=== PATIENT | female | born 1935 | race Caucasian/White ===

== ENCOUNTER 2019-01-17 10:28 | Observation (INO) | payer MEDICARE, OTHER ==
--- NOTE | 2019-01-17 10:38 | EDM.PDOC ---
ED HPI GENERAL MEDICAL PROBLEM - General Chief Complaint: Respiratory Problem Stated Complaint: TROUBLE BREATHING Time Seen by Provider: 01/17/19 10:38 Source of Information: Reports: Patient, Family (daughter), Old Records, RN, RN Notes Reviewed History Limitations: Reports: No Limitations - History of Present Illness INITIAL COMMENTS - FREE TEXT/NARRATIVE: Pt arrives to ER from home by POV with c/o shortness of breath. Pt states that she started feeling bad yesterday with shortness of breath, but no cough. She states that she was admitted to the hospital 10/26/18 in [place] for pneumonia, influenza A, acute respiratory failure, and sepsis. Today in addition to feeling SOB, she reports wheezing, and that it hurts her chest when her dogs sleep on her chest. Denies cough, sputum, chest pain, abdominal pain, N/V, fever , or chills. Admits to being swollen under the eyes, orthopnea, and lower extremity edema. Pt's daughter states the pt's toes were swollen and blue last night and this morning. Pt had an ECHO recently but doesn't know the results. She has Hx of CHF, and A-fib. Patient states is compliant with her water pill. Onset: Gradual Onset Date: 01/16/19 Duration: Constant Location: Reports: Chest, Generalized Quality: Reports: Other (Denies pain) Severity: Moderate Improves with: Reports: None Worsens with: Reports: Other (Activity/exertion) Associated Symptoms: Reports: No Other Symptoms - Related Data Allergies Allergy/AdvReac Type Severity Reaction Status Date / Time No Known Allergies Allergy Verified 01/17/19 10:49 Home Meds: Home Meds Bimatoprost [Lumigan 0.03% Ophth Soln] 1 drop EYEBOTH BEDTIME 02/26/15 [History] Flecainide [Tambocor] 100 mg PO BID 02/26/15 [History] Furosemide [Lasix] 40 mg PO DAILY 02/26/15 [History] Losartan [Cozaar] 25 mg PO DAILY 02/26/15 [History] Metoprolol Succinate [Toprol XL] 25 mg PO DAILY 02/26/15 [History] Omeprazole 20 mg PO DAILY 02/26/15 [History] Warfarin [Coumadin] 2.5 mg PO ASDIRECTED 02/26/15 [History] Warfarin [Coumadin] 5 mg PO ASDIRECTED 02/26/15 [History] atorvaSTATin [Lipitor] 10 mg PO DAILY 02/26/15 [History] Pramipexole [Mirapex] 0.125 mg PO BEDTIME 04/25/18 [History] Past Medical History HEENT History: Reports: Glaucoma, Impaired Vision, Other (See Below) Other HEENT History: WEARS CORRECTIVE LENS Cardiovascular History: Reports: Afib, High Cholesterol, Hypertension, PVD, Other (See Below) Other Cardiovascular History: CHRONIC LEG EDEMA Respiratory History: Reports: Sleep Apnea Gastrointestinal History: Reports: GERD, Hiatal Hernia Genitourinary History: Reports: Chronic Renal Insuffiency, 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: Musculoskeletal History: Reports: Osteoarthritis Neurological History: Reports: Other (See Below) Other Neuro History: RESTLESS LEG SYNDROME Psychiatric History: Reports: None Endocrine/Metabolic History: Reports: Obesity/BMI 30+, Osteoporosis Hematologic History: Reports: None Immunologic History: Reports: None Oncologic (Cancer) History: Reports: None Dermatologic History: Reports: None - Infectious Disease History Infectious Disease History: Reports: Chicken Pox, Measles - Past Surgical History Head Surgeries/Procedures: Reports: None HEENT Surgical History: Reports: Cataract Surgery, Oral Surgery, Other (See Below) Other HEENT Surgeries/Procedures: NASAL SURG (SEPTOPLASTY). CATARACT EXTRACTION WITH iSTENT PLACEMENT BILAT EYES Cardiovascular Surgical History: Reports: None Respiratory Surgical History: Reports: None GI Surgical History: Reports: Colonoscopy, EGD, Hernia, Abdominal Female Surgical History: Reports: Hysterectomy Endocrine Surgical History: Reports: None Musculoskeletal Surgical History: Reports: Hip Replacement, Knee Replacement, Other (See Below) Other Musculoskeletal Surgeries/Procedures:: FOOT SURGERY X4 HARDWARE Oncologic Surgical History: Reports: None Dermatological Surgical History: Reports: None Social & Family History - Family History Family Medical History: Noncontributory - Caffeine Use Caffeine Use: Reports: Coffee Other Caffeine Use: COFFEE IN THE AM - Living Situation & Occupation Living situation: Reports: , with Spouse Occupation: Retired ED ROS GENERAL - Review of Systems Review Of Systems: ROS reveals no pertinent complaints other than HPI. ED EXAM, GENERAL - Physical Exam Exam: See Below Exam Limited By: No Limitations General Appearance: Alert, No Apparent Distress, Obese Eye Exam: Bilateral Eye: Normal Inspection Nose: Normal Inspection Throat/Mouth: Normal Inspection, Normal Lips, Normal Voice, No Airway Compromise Head: Atraumatic, Normocephalic Neck: Normal Inspection, Supple, Full Range of Motion Respiratory/Chest: No Respiratory Distress, No Accessory Muscle Use, Decreased Breath Sounds, Rales. No: Rhonchi, Wheezing Cardiovascular: Regular Rate, Rhythm, Other (+2 edema to knees B/L) GI/Abdominal: Normal Bowel Sounds, Soft, Non-Tender, No Distention Back Exam: Normal Inspection Extremities: Normal Range of Motion, Pedal Edema, Other (Chronic appearing lower extremity venous stasis changes.). No: Leg Pain Neurological: Alert, Oriented, No Motor/Sensory Deficits Psychiatric: Normal Mood Skin Exam: Warm, Dry EKG INTERPRETATION EKG Date: 01/17/19 Time: 11:11 Rhythm: Other (SR) Rate (Beats/Min): 67 [place]: Normal P-Wave: Present (Left atrial abnormality, 1st degree AVB) QRS: Wide (borderline IVCD) ST-T: Normal QT: Normal Comparison: NA - No Prior EKG Course - Vital Signs Last Recorded V/S: Last Vital Signs Temp 37.6 C 01/17/19 10:36 Pulse 66 01/17/19 12:04 Resp 18 01/17/19 12:04 BP 135/62 01/17/19 12:04 Pulse Ox 92 L 01/17/19 12:04 - Orders/Labs/Meds Orders: Active Orders 24 hr Category Date Time Status EKG 12 Lead [EKG Documentation Completion] [RC] STAT Care 01/17/19 11:07 Active Peripheral IV Care [RC] . DIRECTED Care 01/17/19 11:08 Active UA RFX KASEY AND CULT IF INDIC [URIN] Stat Lab 01/17/19 11:08 Ordered Sodium Chloride 0.9% [Saline Flush] Med 01/17/19 11:06 Active 10 ml FLUSH ASDIRECTED PRN Peripheral IV Insertion Adult [OM.PC] Stat Oth 01/17/19 11:07 Ordered Medication Orders Sodium Chloride (Saline Flush) 10 ml FLUSH ASDIRECTED PRN PRN Reason: Keep Vein Open Last Admin: 01/17/19 12:03 Dose: 10 ml Labs: Laboratory Tests 01/17/19 01/17/19 01/17/19 Range/Units 11:20 11:20 11:20 WBC 10.4 H (5.0-10.0) 10^3/uL RBC 4.09 L (4.2-5.4) 10^6/uL Hgb 12.5 (12.0-16.0) g/dL Hct 39.3 (37.0-47.0) % MCV 96.1 (80-100) fL MCH 30.6 (27.0-34.0) pg MCHC 31.8 L (33.0-35.0) g/dL Plt Count 176 D (150-450) 10^3/uL Neut % (Auto) 75.1 (42.2-75.2) % Lymph % (Auto) 12.8 L (20.5-50.1) % [place] % (Auto) 11.7 H (2-8) % Eos % (Auto) 0.2 L (1.0-3.0) % Baso % (Auto) 0.2 (0.0-1.0) % PT 37.5 H (9.0-12.0) SEC INR 3.9 H (0.9-1.2) Sodium 137 (135-145) mmol/L Potassium 3.9 (3.6-5.0) mmol/L Chloride 105 (101-111) mmol/L Carbon Dioxide 23.0 (21.0-31.0) mmol/L Anion Gap 12.9 BUN 18 (7-18) mg/dL Creatinine 1.1 (0.6-1.3) mg/dL Est Cr Clr Drug Dosing 28.81 mL/min Estimated GFR (MDRD) 48 BUN/Creatinine Ratio 16.36 Glucose 111 H (74-105) mg/dL Calcium 8.6 (8.4-10.2) mg/dl Total Bilirubin 1.2 H (0.2-1.0) mg/dL AST 35 (10-42) IU/L ALT 27 (10-60) IU/L Alkaline Phosphatase 83 (42-121) IU/L Troponin I 0.04 H* (0.00-0.02) ng/ml B-Natriuretic Peptide 550 H (0-100) pg/ml Total Protein 7.0 (6.7-8.2) g/dl Albumin 3.6 (3.2-5.5) g/dl Globulin 3.4 Albumin/Globulin Ratio 1.06 Meds: Medications Generic Name Dose Route Start Last Admin Trade Name Richardq PRN Reason Stop Dose Admin Sodium Chloride 10 ml 01/17/19 11:06 01/17/19 12:03 Saline Flush FLUSH 10 ml ASDIRECTED PRN Administration Keep Vein Open Discontinued Medications Generic Name Dose Route Start Last Admin Trade Name Richardq PRN Reason Stop Dose Admin Aspirin 324 mg 01/17/19 12:08 Aspirin PO 01/17/19 12:09 ONETIME ONE Furosemide 80 mg 01/17/19 12:08 Lasix IVPUSH 01/17/19 12:09 NOW ONE - Radiology Interpretation Free Text/Narrative:: XR Chest: Cardiomegaly, generalized pulmonary venous, congestion and blunting of the costovertebral sulci with fluid in the fissures indicating cardiovascular decompensation (CHF) which is new since x-ray from 08/22/12 per Rad. report. Departure - Departure Time of Disposition: 12:34 (admit to Dr. Higuera) Disposition: Refer to Observation Condition: Undetermined Clinical Impression: Elevated troponin Acute CHF (congestive heart failure) Qualifiers: Heart failure type: unspecified Qualified Code(s): I50.9 - Heart failure, unspecified - Discharge Information *PRESCRIPTION DRUG MONITORING PROGRAM REVIEWED*: No *COPY OF PRESCRIPTION DRUG MONITORING REPORT IN PATIENT ELSA: No Forms: ED Department Discharge - My Orders Last 24 Hours: My Active Orders 01/17/19 11:06 Sodium Chloride 0.9% [Saline Flush] 10 ml FLUSH ASDIRECTED PRN 01/17/19 11:07 EKG 12 Lead [EKG Documentation Completion] [RC] STAT Peripheral IV Insertion Adult [OM.PC] Stat 01/17/19 11:08 Peripheral IV Care [RC] . DIRECTED UA RFX KASEY AND CULT IF INDIC [URIN] Stat - Assessment/Plan Last 24 Hours: My Active Orders 01/17/19 11:06 Sodium Chloride 0.9% [Saline Flush] 10 ml FLUSH ASDIRECTED PRN 01/17/19 11:07 EKG 12 Lead [EKG Documentation Completion] [RC] STAT Peripheral IV Insertion Adult [OM.PC] Stat 01/17/19 11:08 Peripheral IV Care [RC] . DIRECTED UA RFX KASEY AND CULT IF INDIC [URIN] Stat
[2019-01-17 11:46] LABS: ANION GAP 12.9
[2019-01-17] MEDS: Sodium Chloride 0.9% 10 ML Syringe FLUSH PRN ×3 (12:03→21:12)
--- NOTE | 2019-01-17 12:05 | CR ---
Clinical history: 83-year-old female with peripheral edema and shortness of breath. Interpretation: Abnormal. Cardiomegaly, generalized pulmonary venous congestion and blunting of the costophrenic sulci with fluid in the fissures indicating cardiovascular decompensation i.e. CHF. (New since comparison film 22 August 2012) No lung mass hilar lymphadenopathy or focal lobar pneumonia. Small hiatus hernia lower, middle mediastinum. No atelectasis/collapse. No pneumothorax.
[2019-01-17] MEDS ORDERED: Furosemide 40 MG/4 ML VIAL IVPUSH ONE (12:08)
[2019-01-17] MEDS ORDERED: Aspirin 81 MG Tab.Chew PO ONE (12:08)
--- NOTE | 2019-01-17 13:06 | PCM.HP ---
H&P History of Present Illness - General Date of Service: 01/17/19 Admit Problem/Dx: Admitted with: Increased shortness of breath and elevated Troponin Source of Information: Patient, EMS Notes Reviewed History Limitations: Reports: No Limitations - History of Present Illness Initial Comments - Free Text/Narative: Ms. Patel is a 83 Y/O F with past medical history which is significant for hypertension, dyslipidemia, gastroesophageal reflux disease, insomnia, history of Meniere's disease, CHF, Chronic A-fib on flecanide and anti-coagulation , she was seen by EP cardiology at [facility] and scheduled to have GEMA, Flutter ablation and possible cardioversion on 02/03/19, she also has CKD stage III . Today she presented to ED with Increased shortness of breath and CXR showed generalized pulmonary congestion likely CHF exacerbation. labs showed Mild elevation of Troponin ( 0.04), She was given lasix 80 mg IV X 1 dose in ER but will be admitted for observation for monitoring Troponin and more diuresis. Onset of Symptoms: Reports: Gradual Duration of Symptoms: Reports: Day(s): Location: Reports: Chest (congestion) Severity: Moderate Context: Reports: Exertion Associated Symptoms: Reports: Shortness of Breath - Related Data Allergies/Adverse Reactions: Allergies Allergy/AdvReac Type Severity Reaction Status Date / Time No Known Allergies Allergy Verified 01/17/19 13:20 Home Medications: Home Meds Bimatoprost [Lumigan 0.03% Ophth Soln] 1 drop EYEBOTH BEDTIME 02/26/15 [History] Flecainide [Tambocor] 100 mg PO BID 02/26/15 [History] Furosemide [Lasix] 40 mg PO DAILY 02/26/15 [History] Losartan [Cozaar] 25 mg PO DAILY 02/26/15 [History] Metoprolol Succinate [Toprol XL] 25 mg PO DAILY 02/26/15 [History] Omeprazole 20 mg PO DAILY 02/26/15 [History] Warfarin [Coumadin] 2.5 mg PO ASDIRECTED 02/26/15 [History] Warfarin [Coumadin] 5 mg PO ASDIRECTED 02/26/15 [History] atorvaSTATin [Lipitor] 10 mg PO DAILY 02/26/15 [History] Pramipexole [Mirapex] 0.125 mg PO BEDTIME 09/07/18 [History] Past Medical History HEENT History: Reports: Glaucoma, Impaired Vision, Other (See Below) Other HEENT History: WEARS CORRECTIVE LENS Cardiovascular History: Reports: Afib, High Cholesterol, Hypertension, PVD, Other (See Below) Other Cardiovascular History: CHRONIC LEG EDEMA Respiratory History: Reports: Sleep Apnea Other Respiratory History: was just in hospital in [place] for bacterial pneumonia in October 2018 Gastrointestinal History: Reports: GERD, Hiatal Hernia Genitourinary History: Reports: Chronic Renal Insuffiency, 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: Musculoskeletal History: Reports: Osteoarthritis Neurological History: Reports: Other (See Below) Other Neuro History: RESTLESS LEG SYNDROME Psychiatric History: Reports: None Endocrine/Metabolic History: Reports: Obesity/BMI 30+, Osteoporosis Hematologic History: Reports: None Immunologic History: Reports: None Oncologic (Cancer) History: Reports: None Dermatologic History: Reports: None - Infectious Disease History Infectious Disease History: Reports: Chicken Pox, Measles - Past Surgical History Head Surgeries/Procedures: Reports: None HEENT Surgical History: Reports: Cataract Surgery, Oral Surgery, Other (See Below) Other HEENT Surgeries/Procedures: NASAL SURG (SEPTOPLASTY). CATARACT EXTRACTION WITH iSTENT PLACEMENT BILAT EYES Cardiovascular Surgical History: Reports: None Respiratory Surgical History: Reports: None GI Surgical History: Reports: Colonoscopy, EGD, Hernia, Abdominal Female Surgical History: Reports: Hysterectomy Endocrine Surgical History: Reports: None Musculoskeletal Surgical History: Reports: Hip Replacement, Knee Replacement, Other (See Below) Other Musculoskeletal Surgeries/Procedures:: FOOT SURGERY X4 HARDWARE Oncologic Surgical History: Reports: None Dermatological Surgical History: Reports: None Social & Family History - Family History Family Medical History: Noncontributory - Tobacco Use Smoking Status *Q: Never Smoker Second Hand Smoke Exposure: No - Caffeine Use Caffeine Use: Reports: Coffee Other Caffeine Use: COFFEE IN THE AM - Recreational Drug Use Recreational Drug Use: No - Living Situation & Occupation Living situation: Reports: , with Spouse Occupation: Retired H&P Review of Systems - Review of Systems: Review Of Systems: See Below General: Reports: Weakness. Denies: Fever, Chills, Fatigue, Weight Loss HEENT: Denies: Dysphasia, Headaches, Sinus Congestion, Sore Throat, Visual Changes Pulmonary: Reports: Shortness of Breath, Wheezing. Denies: Cough, Sputum Cardiovascular: Reports: Dyspnea on Exertion, Orthopnea. Denies: Chest Pain, Lightheadedness Gastrointestinal: Denies: Abdominal Pain, Constipation, Nausea, Vomiting Genitourinary: Denies: Dysuria, Burning, Urgency, Flank Pain Musculoskeletal: Reports: Shoulder Pain, Joint Swelling. Denies: Hand Pain, Leg Pain Skin: Denies: Cyanosis, Jaundice, Bruising, Pruritis, Rash Psychiatric: Denies: Confusion, Anxiety, Agitation Neurological: Denies: Numbness, Tingling, Tremors Hematologic/Lymphatic: Denies: Easy Bleeding, Easy Bruising Immunologic: Reports: No Symptoms Exam - Exam Exam: See Below - Vital Signs Vital Signs: Last Vital Signs Temp 37.6 C 01/17/19 10:36 Pulse 66 01/17/19 12:04 Resp 18 01/17/19 12:04 BP 135/62 01/17/19 12:04 Pulse Ox 92 L 01/17/19 12:04 Weight: 87.634 kg - Exam Quality Assessment: DVT Prophylaxis. No: Urinary Catheter General: Alert, Oriented, Cooperative HEENT: Conjunctiva Clear, Mucosa Moist & Aten, Pupils Equal, Pupils Reactive Neck: Supple, Trachea Midline Lungs: Clear to Auscultation, Normal Respiratory Effort, Crackles, Wheezing Cardiovascular: Irregular Rhythm, Systolic Murmur GI/Abdominal Exam: Normal Bowel Sounds, Soft, Non-Tender, No Distention. No: Rigid, Rebound, Tender (Female) Exam: Deferred Rectal (Female) Exam: Deferred Back Exam: Normal Inspection Extremities: Normal Inspection, Pedal Edema Skin: Warm, Dry, Intact Neurological: Cranial Nerves Intact, Reflexes Equal Bilateral Neuro Extensive - Mental Status: Alert, Oriented x3, Normal Mood/Affect, Normal Cognition, Memory Intact Neuro Extensive - Motor, Sensory, Reflexes: CN II-XII Intact, Normal Gait, Normal Reflexes Psychiatric: Alert, Normal Affect, Normal Mood - Patient Data Lab Results Last 24 hrs: Laboratory Results - last 24 hr 01/17/19 01/17/19 01/17/19 Range/Units 11:20 11:20 11:20 WBC 10.4 H (5.0-10.0) 10^3/uL RBC 4.09 L (4.2-5.4) 10^6/uL Hgb 12.5 (12.0-16.0) g/dL Hct 39.3 (37.0-47.0) % MCV 96.1 (80-100) fL MCH 30.6 (27.0-34.0) pg MCHC 31.8 L (33.0-35.0) g/dL Plt Count 176 D (150-450) 10^3/uL Neut % (Auto) 75.1 (42.2-75.2) % Lymph % (Auto) 12.8 L (20.5-50.1) % [place] % (Auto) 11.7 H (2-8) % Eos % (Auto) 0.2 L (1.0-3.0) % Baso % (Auto) 0.2 (0.0-1.0) % PT 37.5 H (9.0-12.0) SEC INR 3.9 H (0.9-1.2) Sodium 137 (135-145) mmol/L Potassium 3.9 (3.6-5.0) mmol/L Chloride 105 (101-111) mmol/L Carbon Dioxide 23.0 (21.0-31.0) mmol/L Anion Gap 12.9 BUN 18 (7-18) mg/dL Creatinine 1.1 (0.6-1.3) mg/dL Est Cr Clr Drug Dosing 28.81 mL/min Estimated GFR (MDRD) 48 BUN/Creatinine Ratio 16.36 Glucose 111 H (74-105) mg/dL Calcium 8.6 (8.4-10.2) mg/dl Total Bilirubin 1.2 H (0.2-1.0) mg/dL AST 35 (10-42) IU/L ALT 27 (10-60) IU/L Alkaline Phosphatase 83 (42-121) IU/L Troponin I 0.04 H* (0.00-0.02) ng/ml B-Natriuretic Peptide 550 H (0-100) pg/ml Total Protein 7.0 (6.7-8.2) g/dl Albumin 3.6 (3.2-5.5) g/dl Globulin 3.4 Albumin/Globulin Ratio 1.06 Result Diagrams: 01/17/19 11:20 01/17/19 11:20 - Problem List (1) Acute CHF (congestive heart failure) SNOMED Code(s): 24900997 ICD Code: I50.9 - HEART FAILURE, UNSPECIFIED Status: Acute Current Visit : No Qualifiers: Heart failure type: unspecified Qualified Code(s): I50.9 - Heart failure, unspecified (2) Elevated troponin SNOMED Code(s): 117031180, 075945913, 729948948 ICD Code: R74.8 - ABNORMAL LEVELS OF OTHER SERUM ENZYMES Status: Acute Current Visit: No Problem List Initiated/Reviewed/Updated: Yes Orders Last 24hrs: Active Orders 24 hr Category Date Time Status EKG 12 Lead [EKG Documentation Completion] [RC] STAT Care 01/17/19 11:07 Active Peripheral IV Care [RC] . DIRECTED Care 01/17/19 11:08 Active UA RFX KASEY AND CULT IF INDIC [URIN] Stat Lab 01/17/19 11:08 Ordered Sodium Chloride 0.9% [Saline Flush] Med 01/17/19 11:06 Active 10 ml FLUSH ASDIRECTED PRN Peripheral IV Insertion Adult [OM.PC] Stat Oth 01/17/19 11:07 Ordered Medication Orders Sodium Chloride (Saline Flush) 10 ml FLUSH ASDIRECTED PRN PRN Reason: Keep Vein Open Last Admin: 01/17/19 12:39 Dose: 10 ml Admin: 01/17/19 12:03 Dose: 10 ml Assessment/Plan Comment:: This is a 83 y/o F with past history of Chronic a-fib/Flutter on flecanide and anti-coagulation , hypertension, Dyslipidemia , who presented to ED with complain of Increased shortness of breath, Dyspnea on Exertion. CXR showed significant congestion and also her tropinin was slightly elevated ( 0.04), was admitted for observation and monitoring cardiac markers Impression and Plan: Increased shortness of Breath: This is likely from CHF exacerbation with pulmonary congestion -She has received lasix 80 mg IV X 1 dose in ED and will give a second dose of IV lasix at 4:30 PM -Continue I/O recording -Will resume home diuretics from Tomorrow AM ( lasix 40 mg BID and Metolazone at 2.5 mg QOD] -Will keep 02 sat at >90 2. Hypertension: BP is acceptable and will continue Metoprolol at 25 mg daily and Losartan at 25 mg daily 3. Chronic A-Fib: will continue Flecanide at 100 mg BID and continue coumadin ( pharmacy to dose and Monitor INR) 4. Dyslipidemia:Will continue Lipitor at 10 mg daily 5. GI prophylaxis: will continue Omeprazole at 20 mg daily 6. DVT prophylaxis: She is on Coumadin 7. Code Status: discussed with pt and she is DNR/DNI
[2019-01-17] MEDS ORDERED: Docusate Sodium 100 MG Cap PO PRN (13:46)
[2019-01-17] MEDS ORDERED: Acetaminophen 325 MG Tab PO PRN (13:46)
[2019-01-17] MEDS ORDERED: Heparin Sodium 5,000 Units/ML Vial SUBCUT SCH (14:00)
[2019-01-17] MEDS ORDERED: Furosemide 100 MG/10 ML SDV IVPUSH ONE (16:30)
[2019-01-17] MEDS: FLECAINIDE 100 MG PO SCH (20:32)
[2019-01-17] MEDS ORDERED: BIMATOPROST EYEBOTH SCH (21:00)
[2019-01-17] MEDS ORDERED: MIRAPEX 0.25 MG PO SCH (21:00)
[2019-01-17] MEDS ORDERED: LUMIGAN 0.01% EYEBOTH SCH (21:00)
[2019-01-18] MEDS ORDERED: Omeprazole 20 MG Cap.CR **OWN MED PO SCH (06:00)
[2019-01-18 06:48] LABS: ANION GAP 15.8; CHLORIDE,CL 97 mmol/L (101-111); SODIUM,NA 138 mmol/L (135-145)
[2019-01-18] MEDS ORDERED: Metolazone 2.5 MG Tab PO SCH (07:20)
[2019-01-18] MEDS ORDERED: Potassium Chloride 10 MEQ in Premix Bag 4 BAG IV ONE (07:41)
[2019-01-18] MEDS ORDERED: Potassium Chloride 10 MEQ Tab.ER PO ONE ×2 (08:00→11:04)
[2019-01-18] MEDS: Potassium Chloride 100 ML IV SCH ×3 (08:13→11:27)
[2019-01-18] MEDS: Sodium Chloride 0.9% 10 ML Syringe FLUSH PRN (08:14)
[2019-01-18] MEDS: Furosemide 40 MG Tab **OWN MED PO SCH ×2 (08:21→14:30)
[2019-01-18] MEDS: FLECAINIDE 100 MG PO SCH (08:23)
[2019-01-18] MEDS ORDERED: Losartan 25 MG Tab PO SCH (09:00)
[2019-01-18] MEDS ORDERED: atorvaSTATin 10 MG Tab **OWN MED PO SCH (09:00)
[2019-01-18] MEDS ORDERED: Metoprolol Succinate 25 MG Tab.ER **OWN MED PO SCH (09:00)
[2019-01-18 12:11] VITALS: BP 128/62
--- NOTE | 2019-01-18 14:07 | PCM.DCSUM1 ---
Discharge Summary - Hospital Course Free Text/Narrative:: Ms. Patel is a 83 Y/O F with past medical history which is significant for hypertension, dyslipidemia, gastroesophageal reflux disease, insomnia, history of Meniere's disease, CHF, Chronic A-fib on flecanide and anti-coagulation , she was seen by EP cardiology at [facility] and scheduled to have GEMA, Flutter ablation and possible cardioversion on 02/03/19, she also has CKD stage III . She presented to ED on 01/17/19 with Increased shortness of breath and CXR showed generalized pulmonary congestion likely CHF exacerbation. labs showed Mild elevation of Troponin ( 0.04), She was given lasix 80 mg IV X 1 dose in ER and admitted for observation for monitoring Troponin and more diuresis. After admission troponin were followed q6 hrs X 4 times a last Troponin was 0.03 admitted with 0.04. she has receive lasix 80 mg IV X 2 dose and she responded well and will going home today. She will follow with PMD and also be seen in renal clinic on 01/22/19 at Noon. Diagnosis: Stroke: No - Discharge Data Discharge Date: 01/18/19 Discharge Disposition: Home, Self-Care 01 Condition: Good - Discharge Diagnosis/Problem(s) (1) Acute CHF (congestive heart failure) SNOMED Code(s): 32603476 ICD Code: I50.9 - HEART FAILURE, UNSPECIFIED Status: Acute Current Visit : No Qualifiers: Heart failure type: unspecified Qualified Code(s): I50.9 - Heart failure, unspecified (2) Elevated troponin SNOMED Code(s): 193407700, 507356466, 416335667 ICD Code: R74.8 - ABNORMAL LEVELS OF OTHER SERUM ENZYMES Status: Acute Current Visit: No - Patient Instructions Diet: Heart Healthy Diet Activity: As Tolerated Showering/Bathing: May Shower Notify Provider of: Fever, Nausea and/or Vomiting Other/Special Instructions: Ms. Patel is a 83 Y/O F with past medical history which is significant for hypertension, dyslipidemia, gastroesophageal reflux disease, insomnia, history of Meniere's disease, CHF, Chronic A-fib on flecanide and chronic anti-coagulation , she was seen by EP cardiology at [facility] and scheduled to have GEMA, Flutter ablation and possible cardioversion on 02/03/19, she also has CKD stage III . she presented to ED on 01/17/19 with Increased shortness of breath and CXR showed generalized pulmonary congestion likely CHF exacerbation. labs showed Mild elevation of Troponin ( 0.04), She was given lasix 80 mg IV X 1 dose in ER and admitted for observation for monitoring Troponin and more diuresis. she is doing well and will go home today , advise to follow with PMD in this week and also follow in renal clinic with labs on 01/22/19 at 12:00 ( noon) - Discharge Plan *PRESCRIPTION DRUG MONITORING PROGRAM REVIEWED*: No *COPY OF PRESCRIPTION DRUG MONITORING REPORT IN PATIENT ELSA: No Home Medications: Home Meds Bimatoprost [Lumigan 0.03% Ophth Soln] 1 drop EYEBOTH BEDTIME 02/26/15 [History] Flecainide [Tambocor] 100 mg PO BID 02/26/15 [History] Losartan [Cozaar] 25 mg PO DAILY 02/26/15 [History] Metoprolol Succinate [Toprol XL] 25 mg PO DAILY 02/26/15 [History] Omeprazole 20 mg PO DAILY 02/26/15 [History] Warfarin [Coumadin] 2.5 mg PO .MOWEDFRSASU 02/26/15 [History] Warfarin [Coumadin] 5 mg PO .TUTH 02/26/15 [History] atorvaSTATin [Lipitor] 10 mg PO DAILY 02/26/15 [History] Calcitriol 0.5 mcg PO .MOTUWEDTHFR 01/17/19 [History] Pramipexole [Mirapex] 0.25 mg PO BEDTIME 01/17/19 [History] metOLazone [Metolazone] 2.5 mg PO Q48H 01/17/19 [History] Furosemide [Lasix] 40 mg PO BIDDIURETIC tablet 01/18/19 [Rx] Patient's Own Medication [Ptom] 0 each EYEBOTH BEDTIME each 01/18/19 [Rx] Forms: ED Department Discharge Referrals: PCP,None [Primary Care Provider] - - Discharge Summary/Plan Comment DC Time >30 min.: Yes Discharge Summary/Plan Comment: This is a 83 y/o F with past history of Chronic a-fib/Flutter on flecanide and anti-coagulation , hypertension, Dyslipidemia , who presented to ED with complain of Increased shortness of breath, Dyspnea on Exertion. CXR showed significant congestion and also her tropinin was slightly elevated ( 0.04), was admitted for observation and monitoring cardiac markers Impression and Plan: Increased shortness of Breath: This is likely from CHF exacerbation with pulmonary congestion -She has received lasix 80 mg IV X 1 dose in ED and a second dose of IV lasix of 80 mg at 4:30 PM -responded very well to diuretics -Will continue diuretics lasix at 40 mg BID and Metolazone at 2.5 mg QOD] -check weight daily 2. Hypertension: BP is acceptable and will continue Metoprolol at 25 mg daily and Losartan at 25 mg daily 3. Chronic A-Fib: will continue Flecanide at 100 mg BID and continue coumadin ( pharmacy to dose and Monitor INR) 4. Dyslipidemia:Will continue Lipitor at 10 mg daily 5. Disposition: She will be going home today and follow with PMD and renal clinic in a week with labs - General Info Date of Service: 01/18/19 Admission Dx/Problem (Free Text: Admitted with: Increased shortness of breath and elevated Troponin Subjective Update: she was seen in room feeling good, no more shortness of breath, appetite is good , No nausea or vomiting,fever or chill. Functional Status: Reports: Pain Controlled, Tolerating Diet, Ambulating, Urinating - Review of Systems General: Reports: Appetite (good). Denies: Fever, Chills HEENT: Denies: Sinus Congestion, Visual Changes Pulmonary: Denies: Shortness of Breath, Cough, Wheezing Cardiovascular: Denies: Chest Pain, Edema, Lightheadedness Gastrointestinal: Denies: Abdominal Pain, Diarrhea, Nausea, Vomiting Genitourinary: Denies: Dysuria, Burning, Urgency, Flank Pain Musculoskeletal: Denies: Neck Pain, Hand Pain, Leg Pain Skin: Denies: Cyanosis, Bruising, Pruritis, Rash Neurological: Denies: Confusion, Numbness, Tingling Psychiatric: Denies: Confusion, Anxiety - Patient Data Vitals - Most Recent: Last Vital Signs Temp 36.5 C 01/18/19 12:00 Pulse 62 01/18/19 12:00 Resp 18 01/18/19 12:00 BP 128/62 01/18/19 12:00 Pulse Ox 99 01/18/19 12:00 Weight - Most Recent: 87.634 kg I&O - Last 24 hours: Intake & Output 01/17/19 01/18/19 01/18/19 22:59 06:59 14:59 Intake Total 550 300 520 Output Total 2600 1950 1100 Balance -2049 -1649 -580 Lab Results - Last 24 hrs: Laboratory Results - last 24 hr 01/17/19 01/17/19 01/18/19 Range/Units 17:00 23:10 06:05 PT (9.0-12.0) SEC INR (0.9-1.2) Sodium 138 (135-145) mmol/L Potassium 2.8 L (3.6-5.0) mmol/L Chloride 97 L (101-111) mmol/L Carbon Dioxide 28.0 (21.0-31.0) mmol/L Anion Gap 15.8 BUN 16 (7-18) mg/dL Creatinine 0.9 (0.6-1.3) mg/dL Est Cr Clr Drug Dosing 35.21 mL/min Estimated GFR (MDRD) > 60 Glucose 86 (74-105) mg/dL Calcium 8.5 (8.4-10.2) mg/dl Troponin I 0.05 H* 0.04 H* 0.03 H* (0.00-0.02) ng/ml 01/18/19 01/18/19 Range/Units 06:05 13:15 PT 30.8 H (9.0-12.0) SEC INR 3.2 H (0.9-1.2) Sodium (135-145) mmol/L Potassium 4.2 (3.6-5.0) mmol/L Chloride (101-111) mmol/L Carbon Dioxide (21.0-31.0) mmol/L Anion Gap BUN (7-18) mg/dL Creatinine (0.6-1.3) mg/dL Est Cr Clr Drug Dosing mL/min Estimated GFR (MDRD) Glucose (74-105) mg/dL Calcium (8.4-10.2) mg/dl Troponin I (0.00-0.02) ng/ml Med Orders - Current: Current Medications Acetaminophen (Tylenol) 650 mg PO Q4H PRN PRN Reason: Pain (mild 1-3 )/fever Atorvastatin Calcium (Lipitor) 10 mg PO DAILY LITZY Last Admin: 01/18/19 08:21 Dose: 10 mg Calcitriol (Rocaltrol) 0.5 mcg PO [id number] [facility] Docusate Sodium (Colace) 100 mg PO DAILY PRN PRN Reason: Constipation Furosemide (Lasix) 40 mg PO BIDDIURETIC [facility] Last Admin: 01/18/19 08:21 Dose: 40 mg Losartan Potassium (Cozaar) 25 mg PO DAILY [facility] Last Admin: 01/18/19 08:24 Dose: 25 mg Metolazone (Zaroxolyn) 2.5 mg PO Q48H [facility] Last Admin: 01/18/19 07:28 Dose: 2.5 mg Metoprolol Succinate (Toprol Xl) 25 mg PO DAILY [facility] Last Admin: 01/18/19 08:22 Dose: 25 mg Flecainide [Tambocor ] 100 Mg Tabs Own Med 0 mg PO BID [facility] Last Admin: 01/18/19 08:23 Dose: 100 mg Omeprazole (Omeprazole) 20 mg PO ACBREAKFAST [facility] Last Admin: 01/18/19 05:59 Dose: 20 mg Mirapex 0.25 Mg Tabs (Own Med) 0 each PO BEDTIME [facility] Last Admin: 01/17/19 20:33 Dose: 1 each Lumigan Ophthalmic Solution 0.01% Own Med 0 each EYEBOTH BEDTIME [facility] Last Admin: 01/17/19 20:36 Dose: 1 each Sodium Chloride (Saline Flush) 10 ml FLUSH ASDIRECTED PRN PRN Reason: Keep Vein Open Last Admin: 01/18/19 08:14 Dose: 10 ml Warfarin Sodium (Pharmacy To Dose - Warfarin) 1 dose .XX ASDIRECTED [facility] Discontinued Medications Aspirin (Aspirin) 324 mg PO ONETIME ONE Stop: 01/17/19 12:09 Last Admin: 01/17/19 12:38 Dose: 324 mg Furosemide (Lasix) 80 mg IVPUSH NOW ONE Stop: 01/17/19 12:09 Last Admin: 01/17/19 12:39 Dose: 80 mg Furosemide (Lasix) 80 mg IVPUSH NOW ONE Stop: 01/17/19 16:31 Last Admin: 01/17/19 16:36 Dose: 80 mg Heparin Sodium (Porcine) (Heparin Sodium) 5,000 units SUBCUT Q8H [facility] Potassium Chloride (Kcl 10 Meq In Water 100 Ml) 100 mls @ 100 mls/hr IV Q1H [facility] Stop: 01/18/19 11:59 Last Infusion: 01/18/19 12:14 Dose: Infused Lidocaine HCl (Xylocaine-Mpf 1%) 1 ml INJECT Q1H [facility] Stop: 01/18/19 12:31 Last Admin: 01/18/19 11:27 Dose: Not Given Potassium Chloride (Klor-Con 10) 40 meq PO ONETIME ONE Stop: 01/18/19 08:01 Last Admin: 01/18/19 08:24 Dose: 40 meq Potassium Chloride (Klor-Con 10) 40 meq PO ONETIME ONE Stop: 01/18/19 11:05 Last Admin: 01/18/19 11:21 Dose: 40 meq - Exam Quality Assessment: Reports: DVT Prophylaxis. Denies: Supplemental Oxygen, Urine Catheter General: Reports: Alert, Oriented, Cooperative, No Acute Distress HEENT: Reports: Pupils Equal, EOMI, Mucous Membr. Moist/[place] Lungs: Reports: Clear to Auscultation, Normal Respiratory Effort Cardiovascular: Reports: Regular Rate, Regular Rhythm, Murmurs GI/Abdominal Exam: Normal Bowel Sounds, Soft, Non-Tender, No Organomegaly, No Distention (Female) Exam: Deferred Rectal (Female) Exam: Deferred Extremities: Normal Inspection Skin: Reports: Warm, Dry, Intact Neurological: Reports: No New Focal Deficit Psy/Mental Status: Reports: Alert, Normal Affect, Normal Mood
[2019-01-19] MEDS ORDERED: CALCITRIOL 0.25 MCG PO SCH (08:00)
== END 2019-01-18 15:15 | disposition home or self-care (01) ==
LOC: DL.ED 10:28 → UNDOADMOB 12:53 → DL.MS 12:53
PROVIDERS: ADMIT Internal Medicine Nephrology; ATTEND Internal Medicine Nephrology
DX: I13.0 Hypertensive heart and chronic kidney disease with heart failure and stage 1 through stage 4 chronic kidney disease, or unspecified chronic kidney disease (principal); I50.9 Heart failure, unspecified; N18.3 Chronic kidney disease, stage 3 (moderate); R74.8 Abnormal levels of other serum enzymes; I48.2 Chronic atrial fibrillation; E78.00 Pure hypercholesterolemia, unspecified; K21.9 Gastro-esophageal reflux disease without esophagitis; G47.00 Insomnia, unspecified; G25.81 Restless legs syndrome; M19.90 Unspecified osteoarthritis, unspecified site; Z79.01 Long term (current) use of anticoagulants; Z79.899 Other long term (current) drug therapy
CPT/HCPCS: 36415; 71046; 80048; 80053; 81003; 83880; 84132; 84484; 85025; 85610; 93005; 99284; A9270; J1940; J3480

== ENCOUNTER 2019-09-04 11:47 | Emergency (ER) | payer MEDICARE, OTHER ==
[2019-09-04 12:03] VITALS: PULSE 113
[2019-09-04] MEDS ORDERED: Sodium Chloride 0.9% 10 ML Syringe FLUSH PRN (12:26)
[2019-09-04 12:48] LABS: ANION GAP 17.3; CHLORIDE,CL 93 mmol/L (101-111); SODIUM,NA 135 mmol/L (135-145)
--- NOTE | 2019-09-04 13:17 | CR ---
EXAMINATION: Chest 1V Frontal SEX: Female AGE: 83 years CLINICAL HISTORY: 83-year-old female recently diagnosed with mild CHF". Now CHEST PAIN. INTERPRETATION: 1. Chronic cardiomegaly and mild cephalization of flow but decreased interstitial lines/dependent pleural effusions i.e. radiographic improvement since previous exam 03 September 2019. 2. Small hiatus hernia lower middle mediastinum. 3. No new lung mass, hilar lymphadenopathy or focal lobar pneumonia. 4. No pneumothorax or pneumomediastinum. CONCLUSION: Slight radiographic improvement.
--- NOTE | 2019-09-04 13:28 | EDM.PDOC ---
ED HPI GENERAL MEDICAL PROBLEM - General Chief Complaint: Cardiovascular Problem Stated Complaint: SOB Time Seen by Provider: 09/04/19 12:15 Source of Information: Reports: Patient, Family, RN, RN Notes Reviewed History Limitations: Reports: No Limitations - History of Present Illness INITIAL COMMENTS - FREE TEXT/NARRATIVE: patient presents to ER from [facility] with complaint of increased shortness of breath and feeling very tired which has worsened over the past 10 days. Patient denies fever, chills, chest pains, nausea, vomiting, diarrhea. Patient states she has had cardioversion twice for atrial fibrillation for which she was feeling symptomatic. Report from PCP is ejection fraction of 50-55 %. Patient has history of CHF, and is up 6 pounds today. Patient did have a chest x-ray done yesterday that showed some mild CHF. Patient is currently maxed out on oral Lasix, 40 mg twice a day. BNP yesterday was 575. No troponin or EKG has been done today. INR 2.0 on September 01. Onset: Gradual Onset Date: 08/25/19 Duration: Constant, Getting Worse - Related Data Allergies Allergy/AdvReac Type Severity Reaction Status Date / Time No Known Allergies Allergy Verified 01/17/19 13:20 Home Meds: Home Meds Bimatoprost [Lumigan 0.03% Ophth Soln] 1 drop EYEBOTH BEDTIME 02/26/15 [History] Flecainide [Tambocor] 100 mg PO BID 02/26/15 [History] Losartan [Cozaar] 25 mg PO DAILY 02/26/15 [History] Metoprolol Succinate [Toprol XL] 25 mg PO DAILY 02/26/15 [History] Omeprazole 20 mg PO DAILY 02/26/15 [History] Warfarin [Coumadin] 2.5 mg PO .MOWEDFRSASU 02/26/15 [History] Warfarin [Coumadin] 5 mg PO .TUTH 02/26/15 [History] atorvaSTATin [Lipitor] 10 mg PO DAILY 02/26/15 [History] Pramipexole [Mirapex] 0.25 mg PO BEDTIME 01/17/19 [History] calcitrioL [Calcitriol] 0.5 mcg PO .MOTUWEDTHFR 01/17/19 [History] metOLazone [Metolazone] 2.5 mg PO Q48H 01/17/19 [History] Furosemide [Lasix] 40 mg PO BIDDIURETIC tablet 01/18/19 [Rx] Patient's Own Medication [Ptom] 0 each EYEBOTH BEDTIME each 01/18/19 [Rx] Past Medical History HEENT History: Reports: Glaucoma, Impaired Vision, Other (See Below) Other HEENT History: WEARS CORRECTIVE LENS Cardiovascular History: Reports: Afib, High Cholesterol, Hypertension, PVD, Other (See Below) Other Cardiovascular History: CHRONIC LEG EDEMA Respiratory History: Reports: Sleep Apnea Other Respiratory History: was just in hospital in [place] for bacterial pneumonia in October 2018 Gastrointestinal History: Reports: GERD, Hiatal Hernia Genitourinary History: Reports: Chronic Renal Insuffiency, 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 TANKAGE GRINDER History: Reports: Musculoskeletal History: Reports: Osteoarthritis Neurological History: Reports: Other (See Below) Other Neuro History: RESTLESS LEG SYNDROME Psychiatric History: Reports: None Endocrine/Metabolic History: Reports: Obesity/BMI 30+, Osteoporosis Hematologic History: Reports: None Immunologic History: Reports: None Oncologic (Cancer) History: Reports: None Dermatologic History: Reports: None Other Dermatologic History: lower leg discoloration - Infectious Disease History Infectious Disease History: Reports: Chicken Pox, Measles - Past Surgical History Head Surgeries/Procedures: Reports: None HEENT Surgical History: Reports: Cataract Surgery, Oral Surgery, Other (See Below) Other HEENT Surgeries/Procedures: NASAL SURG (SEPTOPLASTY). CATARACT EXTRACTION WITH iSTENT PLACEMENT BILAT EYES Cardiovascular Surgical History: Reports: None Respiratory Surgical History: Reports: None GI Surgical History: Reports: Colonoscopy, EGD, Hernia, Abdominal Female Surgical History: Reports: Hysterectomy Endocrine Surgical History: Reports: None Musculoskeletal Surgical History: Reports: Hip Replacement, Knee Replacement, Other (See Below) Other Musculoskeletal Surgeries/Procedures:: FOOT SURGERY X4 HARDWARE Oncologic Surgical History: Reports: None Dermatological Surgical History: Reports: None Social & Family History - Family History Family Medical History: Noncontributory - Tobacco Use Smoking Status *Q: Never Smoker - Caffeine Use Caffeine Use: Reports: Coffee Other Caffeine Use: COFFEE IN THE AM - Alcohol Use Days Per Week of Alcohol Use: 1 Number of Drinks Per Day: 1 Total Drinks Per Week: 1 - Recreational Drug Use Recreational Drug Use: No - Living Situation & Occupation Living situation: Reports: , with Spouse Occupation: Retired ED ROS GENERAL - Review of Systems Review Of Systems: Comprehensive ROS is negative, except as noted in HPI. ED EXAM, GENERAL - Physical Exam Exam: See Below Exam Limited By: No Limitations General Appearance: Alert, WD/WN, Mild Distress Eye Exam: Bilateral Eye: EOMI, Normal Inspection Ears: Normal External Exam, Hearing Grossly Normal Nose: Normal Inspection Throat/Mouth: Normal Inspection, Normal Voice, No Airway Compromise Head: Atraumatic, Normocephalic Neck: Normal Inspection, Supple, Non-Tender, Full Range of Motion Respiratory/Chest: No Respiratory Distress, No Accessory Muscle Use, Chest Non- Tender, Decreased Breath Sounds, Crackles (bases bilaterally) Cardiovascular: No Gallop, No JVD, No Murmur, No Rub, Irregularly Irregular ( atrial fib) Peripheral Pulses: 2+: Radial (L), Radial (R) GI/Abdominal: Normal Bowel Sounds, Soft, Non-Tender (Female) Exam: Deferred Rectal (Female) Exam: Deferred Back Exam: Normal Inspection, Full Range of Motion, NT Extremities: Normal Inspection, Normal Range of Motion, Non-Tender, Normal Capillary Refill, No Pedal Edema Neurological: Alert, Oriented, CN II-XII Intact, Normal Cognition, Normal Gait, Normal Reflexes, No Motor/Sensory Deficits Psychiatric: Normal Affect, Normal Mood Skin Exam: Warm, Dry, Intact, Normal Color, No Rash Lymphatic: No Adenopathy Course - Vital Signs Last Recorded V/S: Last Vital Signs Temp 98.4 F 09/04/19 11:58 Pulse 113 H 09/04/19 11:58 Resp 18 09/04/19 11:58 BP 91/41 L 09/04/19 11:58 Pulse Ox 93 L 09/04/19 11:58 - Orders/Labs/Meds Orders: Active Orders 24 hr Category Date Time Status EKG Documentation Completion [RC] STAT Care 09/04/19 12:26 Active Peripheral IV Care [RC] . DIRECTED Care 09/04/19 12:27 Active UA RFX KASEY AND CULT IF INDIC [URIN] Stat Lab 09/04/19 12:27 Ordered Sodium Chloride 0.9% [Saline Flush] Med 09/04/19 12:26 Active 10 ml FLUSH ASDIRECTED PRN Peripheral IV Insertion Adult [OM.PC] Stat Oth 09/04/19 12:26 Ordered Medication Orders Sodium Chloride (Saline Flush) 10 ml FLUSH ASDIRECTED PRN PRN Reason: Keep Vein Open Last Admin: 09/04/19 12:37 Dose: 10 ml Labs: Laboratory Tests 09/04/19 09/04/19 09/04/19 Range/Units 12:09 12:09 12:09 WBC 7.9 (5.0-10.0) 10^3/uL RBC 4.14 L (4.2-5.4) 10^6/uL Hgb 12.5 (12.0-16.0) g/dL Hct 38.3 (37.0-47.0) % MCV 92.5 D (80-100) fL MCH 30.2 (27.0-34.0) pg MCHC 32.6 L (33.0-35.0) g/dL Plt Count 234 (150-450) 10^3/uL Neut % (Auto) 60.8 (42.2-75.2) % Lymph % (Auto) 24.7 (20.5-50.1) % Nicholas % (Auto) 13.1 H (2-8) % Eos % (Auto) 1.1 (1.0-3.0) % Baso % (Auto) 0.3 (0.0-1.0) % PT 21.8 H (9.0-12.0) SEC INR 2.2 H (0.9-1.2) Sodium 135 (135-145) mmol/L Potassium 3.3 L D (3.6-5.0) mmol/L Chloride 93 L (101-111) mmol/L Carbon Dioxide 28.0 (21.0-31.0) mmol/L Anion Gap 17.3 BUN 15 (7-18) mg/dL Creatinine 1.1 (0.6-1.3) mg/dL Est Cr Clr Drug Dosing 30.27 mL/min Estimated GFR (MDRD) 48 BUN/Creatinine Ratio 13.63 Glucose 96 (74-105) mg/dL Calcium 9.0 (8.4-10.2) mg/dl Total Bilirubin 1.6 H (0.2-1.0) mg/dL AST 27 (10-42) IU/L ALT 26 (10-60) IU/L Alkaline Phosphatase 80 (42-121) IU/L Troponin I < 0.02 (0.00-0.02) ng/ml B-Natriuretic Peptide (0-100) pg/ml Total Protein 7.2 (6.7-8.2) g/dl Albumin 3.8 (3.2-5.5) g/dl Globulin 3.4 Albumin/Globulin Ratio 1.12 09/04/19 Range/Units 12:09 WBC (5.0-10.0) 10^3/uL RBC (4.2-5.4) 10^6/uL Hgb (12.0-16.0) g/dL Hct (37.0-47.0) % MCV (80-100) fL MCH (27.0-34.0) pg MCHC (33.0-35.0) g/dL Plt Count (150-450) 10^3/uL Neut % (Auto) (42.2-75.2) % Lymph % (Auto) (20.5-50.1) % Nicholas % (Auto) (2-8) % Eos % (Auto) (1.0-3.0) % Baso % (Auto) (0.0-1.0) % PT (9.0-12.0) SEC INR (0.9-1.2) Sodium (135-145) mmol/L Potassium (3.6-5.0) mmol/L Chloride (101-111) mmol/L Carbon Dioxide (21.0-31.0) mmol/L Anion Gap BUN (7-18) mg/dL Creatinine (0.6-1.3) mg/dL Est Cr Clr Drug Dosing mL/min Estimated GFR (MDRD) BUN/Creatinine Ratio Glucose (74-105) mg/dL Calcium (8.4-10.2) mg/dl Total Bilirubin (0.2-1.0) mg/dL AST (10-42) IU/L ALT (10-60) IU/L Alkaline Phosphatase (42-121) IU/L Troponin I (0.00-0.02) ng/ml B-Natriuretic Peptide 620 H (0-100) pg/ml Total Protein (6.7-8.2) g/dl Albumin (3.2-5.5) g/dl Globulin Albumin/Globulin Ratio Meds: Medications Generic Name Dose Route Start Last Admin Trade Name Freq PRN Reason Stop Dose Admin Sodium Chloride 10 ml 09/04/19 12:26 09/04/19 12:37 Saline Flush FLUSH 10 ml ASDIRECTED PRN Administration Keep Vein Open Discontinued Medications Generic Name Dose Route Start Last Admin Trade Name Malgorzata PRN Reason Stop Dose Admin Furosemide 80 mg 09/04/19 13:37 09/04/19 14:09 Lasix IVPUSH 09/04/19 13:38 80 mg NOW ONE Administration Potassium Chloride 40 meq 09/04/19 13:38 09/04/19 14:09 Klor-Con 10 PO 09/04/19 13:39 40 meq ONETIME ONE Administration - Radiology Interpretation Free Text/Narrative:: chest x-ray: 1. Chronic cardiomegaly and mild cephalization of flow but decreased interstitial line/dependent pleural effusions i.e. radiographic improvement since previous exam 03 September 2019. 2. Small hiatus hernia lower middle mediastinum 3. No new lung mass, hilar lymphadenopathy or focal lobar pneumonia 4. No pneumothorax or pneumomediastinum Conclusion: Slight radiographic improvement See radiologist's report Departure - Departure Time of Disposition: 14:31 Disposition: Home, Self-Care 01 Reason for Transfer *Q: Other Condition: Fair Clinical Impression: Atrial fibrillation Qualifiers: Atrial fibrillation type: unspecified Qualified Code(s): I48.91 - Unspecified atrial fibrillation CHF (congestive heart failure) Qualifiers: Heart failure type: unspecified Heart failure chronicity: acute on chronic Qualified Code(s): I50.9 - Heart failure, unspecified Instructions: Shortness of Breath, Adult, [id number], Hypertension, Easy-to- Read, Atrial Fibrillation, [id number], Edema, [id number], Heart Failure, [id number] Forms: ED Department Discharge Additional Instructions: follow-up with Dr. Rose on Saturday at 9:30 AM Increase metoprolol to 50 mg orally once daily Continue taking Lasix as prescribed Sepsis Event Note - Evaluation Sepsis Screening Result: No Definite Risk - Focused Exam Vital Signs: Vital Signs Temp Pulse Resp BP Pulse Ox 09/04/19 11:58 98.4 F 113 H 18 91/41 L 93 L Date Exam was Performed: 09/04/19 Time Exam was Performed: 14:30 - My Orders Last 24 Hours: My Active Orders 09/04/19 12:26 EKG Documentation Completion [RC] STAT Sodium Chloride 0.9% [Saline Flush] 10 ml FLUSH ASDIRECTED PRN Peripheral IV Insertion Adult [OM.PC] Stat 09/04/19 12:27 Peripheral IV Care [RC] . DIRECTED UA RFX KASEY AND CULT IF INDIC [URIN] Stat - Assessment/Plan Last 24 Hours: My Active Orders 09/04/19 12:26 EKG Documentation Completion [RC] STAT Sodium Chloride 0.9% [Saline Flush] 10 ml FLUSH ASDIRECTED PRN Peripheral IV Insertion Adult [OM.PC] Stat 09/04/19 12:27 Peripheral IV Care [RC] . DIRECTED UA RFX KASEY AND CULT IF INDIC [URIN] Stat
[2019-09-04] MEDS ORDERED: Furosemide 40 MG/4 ML VIAL IVPUSH ONE (13:37)
[2019-09-04] MEDS ORDERED: Potassium Chloride 10 MEQ Tab.ER PO ONE (13:38)
[2019-09-04 14:41] VITALS: BP 129/72
== END 2019-09-04 15:22 | disposition home or self-care (01) ==
LOC: DL.ED 11:47
DX: I48.91 Unspecified atrial fibrillation (principal); I11.0 Hypertensive heart disease with heart failure; I50.9 Heart failure, unspecified; E78.00 Pure hypercholesterolemia, unspecified; E66.9 Obesity, unspecified; Z79.01 Long term (current) use of anticoagulants; Z79.899 Other long term (current) drug therapy; Z68.35 Body mass index [BMI] 35.0-35.9, adult
CPT/HCPCS: 36415; 71045; 80053; 81003; 83880; 84484; 85025; 85610; 93005; 96374; 99284; 99285; A9270; J1940

== ENCOUNTER 2019-09-11 23:22 | Emergency (ER) | payer MEDICARE, OTHER ==
[2019-09-11 23:43] VITALS: PULSE 103
--- NOTE | 2019-09-11 23:48 | EDM.PDOC ---
ED HPI GENERAL MEDICAL PROBLEM - General Chief Complaint: Cardiovascular Problem Time Seen by Provider: 09/11/19 23:42 Source of Information: Reports: Patient, EMS History Limitations: Reports: No Limitations - History of Present Illness INITIAL COMMENTS - FREE TEXT/NARRATIVE: EMS found pt sitting in chair not responding until was talked to in loud voice. pt with low BP & O2 sat, normal BS. pt c/o dizziness all day, no energy. denies CP/SOB/MACIAS. states it's not a flu but feels cold. spouse state pt did have small amount diarrhoea x 1 tonight only, no vomiting. - Related Data Allergies Allergy/AdvReac Type Severity Reaction Status Date / Time No Known Allergies Allergy Verified 09/11/19 23:44 Home Meds: Home Meds Bimatoprost [Lumigan 0.03% Ophth Soln] 1 drop EYEBOTH BEDTIME 02/26/15 [History] Flecainide [Tambocor] 100 mg PO BID 02/26/15 [History] Losartan [Cozaar] 25 mg PO DAILY 02/26/15 [History] Metoprolol Succinate [Toprol XL] 25 mg PO DAILY 02/26/15 [History] Omeprazole 20 mg PO DAILY 02/26/15 [History] Warfarin [Coumadin] 2.5 mg PO .MOWEDFRSASU 02/26/15 [History] Warfarin [Coumadin] 5 mg PO .TUTH 02/26/15 [History] atorvaSTATin [Lipitor] 10 mg PO DAILY 02/26/15 [History] Pramipexole [Mirapex] 0.25 mg PO BEDTIME 01/17/19 [History] calcitrioL [Calcitriol] 0.5 mcg PO .MOTUWEDTHFR 01/17/19 [History] metOLazone [Metolazone] 2.5 mg PO Q48H 01/17/19 [History] Furosemide [Lasix] 40 mg PO BIDDIURETIC tablet 01/18/19 [Rx] Patient's Own Medication [Ptom] 0 each EYEBOTH BEDTIME each 01/18/19 [Rx] Past Medical History HEENT History: Reports: Glaucoma, Impaired Vision, Other (See Below) Other HEENT History: WEARS CORRECTIVE LENS Cardiovascular History: Reports: Afib, High Cholesterol, Hypertension, PVD, Other (See Below) Other Cardiovascular History: CHRONIC LEG EDEMA Respiratory History: Reports: Sleep Apnea Other Respiratory History: was just in hospital in [place] for bacterial pneumonia in October 2018 Gastrointestinal History: Reports: GERD, Hiatal Hernia Genitourinary History: Reports: Chronic Renal Insuffiency, 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: Musculoskeletal History: Reports: Osteoarthritis Neurological History: Reports: Other (See Below) Other Neuro History: RESTLESS LEG SYNDROME Psychiatric History: Reports: None Endocrine/Metabolic History: Reports: Obesity/BMI 30+, Osteoporosis Hematologic History: Reports: None Immunologic History: Reports: None Oncologic (Cancer) History: Reports: None Dermatologic History: Reports: None Other Dermatologic History: lower leg discoloration - Infectious Disease History Infectious Disease History: Reports: Chicken Pox, Measles - Past Surgical History Head Surgeries/Procedures: Reports: None HEENT Surgical History: Reports: Cataract Surgery, Oral Surgery, Other (See Below) Other HEENT Surgeries/Procedures: NASAL SURG (SEPTOPLASTY). CATARACT EXTRACTION WITH iSTENT PLACEMENT BILAT EYES Cardiovascular Surgical History: Reports: None Respiratory Surgical History: Reports: None GI Surgical History: Reports: Colonoscopy, EGD, Hernia, Abdominal Female Surgical History: Reports: Hysterectomy Endocrine Surgical History: Reports: None Musculoskeletal Surgical History: Reports: Hip Replacement, Knee Replacement, Other (See Below) Other Musculoskeletal Surgeries/Procedures:: FOOT SURGERY X4 HARDWARE Oncologic Surgical History: Reports: None Dermatological Surgical History: Reports: None Social & Family History - Family History Family Medical History: Noncontributory - Caffeine Use Caffeine Use: Reports: Coffee Other Caffeine Use: COFFEE IN THE AM - Living Situation & Occupation Living situation: Reports: , with Spouse Occupation: Retired ED ROS GENERAL - Review of Systems Review Of Systems: Comprehensive ROS is negative, except as noted in HPI. ED EXAM, GENERAL - Physical Exam Exam: See Below Exam Limited By: No Limitations General Appearance: Alert, WD/WN, No Apparent Distress, Other (sleepy) Eye Exam: Bilateral Eye: PERRL (pupils ER @ 4mm) Ears: Hearing Grossly Normal Throat/Mouth: Normal Voice, No Airway Compromise Head: Atraumatic Neck: Non-Tender, Full Range of Motion Respiratory/Chest: No Respiratory Distress, No Accessory Muscle Use, Rhonchi. No: Decreased Breath Sounds Cardiovascular: Irregularly Irregular GI/Abdominal: Soft, Non-Tender Neurological: Alert, Oriented, Normal Cognition, No Motor/Sensory Deficits Psychiatric: Flat Affect Skin Exam: Warm, Normal Color Lymphatic: No Adenopathy Course - Vital Signs Last Recorded V/S: Last Vital Signs Temp 36.2 C 09/11/19 23:38 Pulse 103 H 09/11/19 23:38 Resp 12 09/11/19 23:38 BP 91/62 09/12/19 01:14 Pulse Ox 100 09/11/19 23:48 - Orders/Labs/Meds Orders: Active Orders 24 hr Category Date Time Status EKG Documentation Completion [RC] STAT Care 09/11/19 23:38 Active Chest 1V Frontal [CR] Urgent Exams 09/12/19 00:30 Taken Head wo Cont [CT] Urgent Exams 09/11/19 23:40 Taken CULTURE BLOOD [BC] Stat Lab 09/11/19 23:39 Results Norepinephrine [Levophed] 4 mg Med 09/12/19 01:45 Active Dextrose 5% in Water 246 ml IV TITRATE Piperacillin/Tazobactam [Zosyn] 3.375 gm Med 09/12/19 03:36 Ordered Sodium Chloride 0.9% [Normal Saline] 100 ml IV ONETIME Sodium Chloride 0.9% [Normal Saline] 1,000 ml Med 09/12/19 01:15 Active IV ASDIRECTED Medication Orders Sodium Chloride (Normal Saline) 1,000 mls @ 100 mls/hr IV ASDIRECTED LITZY Last Admin: 09/12/19 01:14 Dose: 100 mls/hr Norepinephrine Bitartrate 4 mg (/ Dextrose/Water) 250 mls @ 7.5 mls/hr IV TITRATE LITZY; Protocol Last Titration: 09/12/19 01:52 Dose: 4 mcg/min, 15 mls/hr Admin: 09/12/19 01:46 Dose: 2 mcg/min, 7.5 mls/hr Piperacillin Sod/Tazobactam (Sod 3.375 gm/ Sodium Chloride) 100 mls @ 200 mls/ hr IV ONETIME ONE Stop: 09/12/19 04:05 Labs: Laboratory Tests 09/12/19 09/12/19 09/12/19 Range/Units 01:10 01:10 01:10 WBC 7.9 (5.0-10.0) 10^3/uL RBC 4.46 (4.2-5.4) 10^6/uL Hgb 13.5 (12.0-16.0) g/dL Hct 40.6 (37.0-47.0) % MCV 91.0 (80-100) fL MCH 30.3 (27.0-34.0) pg MCHC 33.3 (33.0-35.0) g/dL Plt Count 235 (150-450) 10^3/uL Neut % (Auto) 64.8 (42.2-75.2) % Lymph % (Auto) 19.0 L (20.5-50.1) % [place] % (Auto) 14.2 H (2-8) % Eos % (Auto) 1.6 (1.0-3.0) % Baso % (Auto) 0.4 (0.0-1.0) % PT 33.9 H D (9.0-12.0) SEC INR 3.5 H (0.9-1.2) Sodium 138 (135-145) mmol/L Potassium 3.6 (3.6-5.0) mmol/L Chloride 95 L (101-111) mmol/L Carbon Dioxide 29.0 (21.0-31.0) mmol/L Anion Gap 17.6 BUN 51 H D (7-18) mg/dL Creatinine 2.2 H (0.6-1.3) mg/dL Est Cr Clr Drug Dosing 14.16 mL/min Estimated GFR (MDRD) 21 BUN/Creatinine Ratio 23.18 Glucose 131 H (74-105) mg/dL Lactic Acid (0.5-2.0) mmol/L Calcium 9.0 (8.4-10.2) mg/dl Total Bilirubin 0.5 (0.2-1.0) mg/dL AST 25 (10-42) IU/L ALT 17 (10-60) IU/L Alkaline Phosphatase 72 (42-121) IU/L Troponin I < 0.02 (0.00-0.02) ng/ml B-Natriuretic Peptide (0-100) pg/ml Total Protein 7.0 (6.7-8.2) g/dl Albumin 3.9 (3.2-5.5) g/dl Globulin 3.1 Albumin/Globulin Ratio 1.26 Urine Color (YELLOW) Urine Appearance (CLEAR) Urine pH (5.0-9.0) Ur Specific [place] (1.005-1.030) Urine Protein (NEGATIVE) Urine Glucose (UA) (NEGATIVE) Urine Ketones (NEGATIVE) Urine Occult Blood (NEGATIVE) Urine Nitrite (NEGATIVE) Urine Bilirubin (NEGATIVE) Urine Urobilinogen (0.2-1.0) mg/dL Ur Leukocyte Esterase (NEGATIVE) 09/12/19 09/12/19 09/12/19 Range/Units 01:10 01:10 02:50 WBC (5.0-10.0) 10^3/uL RBC (4.2-5.4) 10^6/uL Hgb (12.0-16.0) g/dL Hct (37.0-47.0) % MCV (80-100) fL MCH (27.0-34.0) pg MCHC (33.0-35.0) g/dL Plt Count (150-450) 10^3/uL Neut % (Auto) (42.2-75.2) % Lymph % (Auto) (20.5-50.1) % [place] % (Auto) (2-8) % Eos % (Auto) (1.0-3.0) % Baso % (Auto) (0.0-1.0) % PT (9.0-12.0) SEC INR (0.9-1.2) Sodium (135-145) mmol/L Potassium (3.6-5.0) mmol/L Chloride (101-111) mmol/L Carbon Dioxide (21.0-31.0) mmol/L Anion Gap BUN (7-18) mg/dL Creatinine (0.6-1.3) mg/dL Est Cr Clr Drug Dosing mL/min Estimated GFR (MDRD) BUN/Creatinine Ratio Glucose (74-105) mg/dL Lactic Acid 3.5 H* (0.5-2.0) mmol/L Calcium (8.4-10.2) mg/dl Total Bilirubin (0.2-1.0) mg/dL AST (10-42) IU/L ALT (10-60) IU/L Alkaline Phosphatase (42-121) IU/L Troponin I (0.00-0.02) ng/ml B-Natriuretic Peptide 202 H (0-100) pg/ml Total Protein (6.7-8.2) g/dl Albumin (3.2-5.5) g/dl Globulin Albumin/Globulin Ratio Urine Color Yellow (YELLOW) Urine Appearance Slightly cloudy (CLEAR) Urine pH 5.0 (5.0-9.0) Ur Specific [place] 1.025 (1.005-1.030) Urine Protein Negative (NEGATIVE) Urine Glucose (UA) Negative (NEGATIVE) Urine Ketones Negative (NEGATIVE) Urine Occult Blood Negative (NEGATIVE) Urine Nitrite Negative (NEGATIVE) Urine Bilirubin Negative (NEGATIVE) Urine Urobilinogen 0.2 (0.2-1.0) mg/dL Ur Leukocyte Esterase Negative (NEGATIVE) Meds: Medications Generic Name Dose Route Start Last Admin Trade Name Freq PRN Reason Stop Dose Admin Sodium Chloride 1,000 mls @ 100 mls/hr 09/12/19 01:15 09/12/19 01:14 Normal Saline IV 100 mls/hr ASDIRECTED LITZY Administration Norepinephrine Bitartrate 4 mg 250 mls @ 7.5 mls/hr 09/12/19 01:45 09/12/19 01:52 / Dextrose/Water IV 4 mcg/min TITRATE LITZY 15 mls/hr Titration Protocol 2 MCG/MIN Piperacillin Sod/Tazobactam 100 mls @ 200 mls/hr 09/12/19 03:36 Sod 3.375 gm/ Sodium Chloride IV 09/12/19 04:05 ONETIME ONE Discontinued Medications Generic Name Dose Route Start Last Admin Trade Name Freq PRN Reason Stop Dose Admin Labetalol HCl 100 mg/ Sodium 100 mls @ 30 mls/hr 09/12/19 01:45 Chloride IV TITRATE LITZY Protocol 0.5 MG/MIN - Re-Assessments/Exams Free Text/Narrative Re-Assessment/Exam: 09/12/19 03:[address] Jayro Chauhan @ who kindly accepted pt. Departure - Departure Time of Disposition: 03:39 Disposition: DC/Tfer to [facility] 02 Reason for Transfer *Q: Other Condition: Fair Clinical Impression: Sepsis Qualifiers: Sepsis type: sepsis due to unspecified organism Sepsis acute organ dysfunction status: with acute organ dysfunction Severe sepsis acute organ dysfunction type : acute liver failure Hepatic coma status: without hepatic coma Severe sepsis shock status: with septic shock Qualified Code(s): A41.9 - Sepsis, unspecified organism; R65.21 - Severe sepsis with septic shock; K72.00 - Acute and subacute hepatic failure without coma Forms: Interfacility Transfer EMTALA Sepsis Event Note - Focused Exam Vital Signs: Vital Signs Temp Pulse Resp BP Pulse Ox Pulse Ox 09/12/19 01:14 91/62 09/11/19 23:48 100 09/11/19 23:38 36.2 C 103 H 12 98/51 L 78 L Date Exam was Performed: 09/12/19 Time Exam was Performed: 03:38 - My Orders Last 24 Hours: My Active Orders 09/11/19 23:38 EKG Documentation Completion [RC] STAT 09/11/19 23:39 CULTURE BLOOD [BC] Stat 09/11/19 23:40 Head wo Cont [CT] Urgent 09/12/19 00:30 Chest 1V Frontal [CR] Urgent 09/12/19 01:15 Sodium Chloride 0.9% [Normal Saline] 1,000 ml IV ASDIRECTED 09/12/19 01:45 Norepinephrine [Levophed] 4 mg Dextrose 5% in Water 246 ml IV TITRATE 09/12/19 03:36 Piperacillin/Tazobactam [Zosyn] 3.375 gm Sodium Chloride 0.9% [Normal Saline] 100 ml IV ONETIME - Assessment/Plan Last 24 Hours: My Active Orders 09/11/19 23:38 EKG Documentation Completion [RC] STAT 09/11/19 23:39 CULTURE BLOOD [BC] Stat 09/11/19 23:40 Head wo Cont [CT] Urgent 09/12/19 00:30 Chest 1V Frontal [CR] Urgent 09/12/19 01:15 Sodium Chloride 0.9% [Normal Saline] 1,000 ml IV ASDIRECTED 09/12/19 01:45 Norepinephrine [Levophed] 4 mg Dextrose 5% in Water 246 ml IV TITRATE 09/12/19 03:36 Piperacillin/Tazobactam [Zosyn] 3.375 gm Sodium Chloride 0.9% [Normal Saline] 100 ml IV ONETIME
[2019-09-12 01:14] VITALS: BP 91/62
[2019-09-12] MEDS ORDERED: Sodium Chloride 0.9% 1,000 ML IV SCH (01:15)
[2019-09-12 01:38] LABS: ANION GAP 17.6; CHLORIDE,CL 95 mmol/L (101-111); SODIUM,NA 138 mmol/L (135-145)
[2019-09-12] MEDS ORDERED: Labetalol 100 MG in Sodium Chloride 0.9% 80 ML IV SCH (01:45)
[2019-09-12] MEDS ORDERED: Norepinephrine 4 MG in Dextrose 5% in Water 246 ML IV SCH ×2 (01:45)
[2019-09-12] MEDS ORDERED: Piperacillin/Tazobactam 3.375 GM in Sodium Chloride 0.9% 100 ML IV ONE (03:36)
== END 2019-09-12 04:29 ==
LOC: DL.ED 23:22
DX: A41.9 Sepsis, unspecified organism (principal); R65.21 Severe sepsis with septic shock; K72.90 Hepatic failure, unspecified without coma; I48.91 Unspecified atrial fibrillation; I12.9 Hypertensive chronic kidney disease with stage 1 through stage 4 chronic kidney disease, or unspecified chronic kidney disease; N18.9 Chronic kidney disease, unspecified; K21.9 Gastro-esophageal reflux disease without esophagitis; E78.00 Pure hypercholesterolemia, unspecified; M19.90 Unspecified osteoarthritis, unspecified site; E66.9 Obesity, unspecified; Z68.36 Body mass index [BMI] 36.0-36.9, adult; Z79.899 Other long term (current) drug therapy
CPT/HCPCS: 36415; 70450; 71045; 80053; 81003; 83605; 83880; 84484; 85025; 85610; 87040; 87804; 93005; 96361; 96365; 96366; 99284; 99285; J7030; J7060

== ENCOUNTER 2020-07-19 14:20 | Emergency (ER) | payer MEDICARE, OTHER ==
[2020-07-19 14:52] VITALS: BP 174/84; PULSE 90
--- NOTE | 2020-07-19 15:08 | EDM.PDOC ---
ED HPI GENERAL MEDICAL PROBLEM - General Chief Complaint: Headache Stated Complaint: MIGRAINE HEADACHE Time Seen by Provider: 07/19/20 15:04 Source of Information: Reports: Patient, RN, RN Notes Reviewed History Limitations: Reports: No Limitations - History of Present Illness INITIAL COMMENTS - FREE TEXT/NARRATIVE: Patient presents to the ED via personal vehicle with complaints of new onset headache. The patient reports the headache began abruptly on Saturday night and has maintained over the past 48 hours. She has trialed two doses of Excedrin migraine, at the suggestion of her PCP Dr. Up, but has not experienced any relief of symptoms. She states the pain is diffuse throughout the head and does not localize to any specific area. She reports she has never experienced pain like this before and she is not prone to headaches. She denies fever, shaking chills, recent illness, vision changes, photophobia, phonophobia, nausea, vomiting, or changes in motor/sensory function. She denies tobacco, alcohol, or recreational drug use. 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 Headache Pain Score (Numeric/FACES): 8 - Related Data Allergies Allergy/AdvReac Type Severity Reaction Status Date / Time No Known Allergies Allergy Verified 07/19/20 14:51 Home Meds: Home Meds Bimatoprost [Lumigan 0.03% Ophth Soln] 1 drop EYEBOTH BEDTIME 02/26/15 [History] Flecainide [Tambocor] 100 mg PO BID 02/26/15 [History] Losartan [Cozaar] 25 mg PO DAILY 02/26/15 [History] Metoprolol Succinate [Toprol XL] 25 mg PO DAILY 02/26/15 [History] Omeprazole 20 mg PO DAILY 02/26/15 [History] Warfarin [Coumadin] 2.5 mg PO .MOWEDFRSASU 02/26/15 [History] Warfarin [Coumadin] 5 mg PO .TUTH 02/26/15 [History] atorvaSTATin [Lipitor] 10 mg PO DAILY 02/26/15 [History] Pramipexole [Mirapex] 0.25 mg PO BEDTIME 01/17/19 [History] calcitrioL [Calcitriol] 0.5 mcg PO .MOTUWEDTHFR 01/17/19 [History] metOLazone [Metolazone] 2.5 mg PO Q48H 01/17/19 [History] Furosemide [Lasix] 40 mg PO BIDDIURETIC tablet 01/18/19 [Rx] Patient's Own Medication [Ptom] 0 each EYEBOTH BEDTIME each 01/18/19 [Rx] Past Medical History HEENT History: Reports: Glaucoma, Impaired Vision, Other (See Below) Other HEENT History: WEARS CORRECTIVE LENS Cardiovascular History: Reports: Afib, High Cholesterol, Hypertension, PVD, Other (See Below) Other Cardiovascular History: CHRONIC LEG EDEMA Respiratory History: Reports: Sleep Apnea Other Respiratory History: was just in hospital in [place] for bacterial pneumonia in October 2018 Gastrointestinal History: Reports: GERD, Hiatal Hernia Genitourinary History: Reports: Chronic Renal Insuffiency, 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: Musculoskeletal History: Reports: Osteoarthritis Neurological History: Reports: Migraines, Other (See Below) Other Neuro History: RESTLESS LEG SYNDROME Psychiatric History: Reports: None Endocrine/Metabolic History: Reports: Obesity/BMI 30+, Osteoporosis Hematologic History: Reports: None Immunologic History: Reports: None Oncologic (Cancer) History: Reports: None Dermatologic History: Reports: Other (See Below) Other Dermatologic History: lower leg discoloration - Infectious Disease History Infectious Disease History: Reports: Chicken Pox, Measles - Past Surgical History Head Surgeries/Procedures: Reports: None HEENT Surgical History: Reports: Cataract Surgery, Oral Surgery, Other (See Below) Other HEENT Surgeries/Procedures: NASAL SURG (SEPTOPLASTY). CATARACT EXTRACTION WITH iSTENT PLACEMENT BILAT EYES Cardiovascular Surgical History: Reports: None Respiratory Surgical History: Reports: None GI Surgical History: Reports: Colonoscopy, EGD, Hernia, Abdominal Female Surgical History: Reports: Hysterectomy Endocrine Surgical History: Reports: None Neurological Surgical History: Reports: None Musculoskeletal Surgical History: Reports: Hip Replacement, Knee Replacement, Other (See Below) Other Musculoskeletal Surgeries/Procedures:: FOOT SURGERY X4 HARDWARE Oncologic Surgical History: Reports: None Dermatological Surgical History: Reports: None Social & Family History - Family History Family Medical History: No Pertinent Family History - Tobacco Use Tobacco Use Status *Q: Never Tobacco User Second Hand Smoke Exposure: No - Caffeine Use Caffeine Use: Reports: Coffee Other Caffeine Use: COFFEE IN THE AM - Recreational Drug Use Recreational Drug Use: No - Living Situation & Occupation Living situation: Reports: , with Spouse Occupation: Retired ED ROS GENERAL - Review of Systems Review Of Systems: Comprehensive ROS is negative, except as noted in HPI. - Physical Exam Exam: See Below Exam Limited By: No Limitations General Appearance: Alert, WD/WN, No Apparent Distress Eye Exam: Bilateral Eye: EOMI, Normal Inspection, PERRL Ears: Normal External Exam, Normal Canal, Hearing Grossly Normal, Normal TMs Nose: Normal Inspection, Normal Mucosa. No: Nasal Tenderness, Nasal Swelling, Nasal Drainage Throat/Mouth: Normal Inspection, Normal Lips, Normal Gums, Normal Oropharynx, Normal Voice, No Airway Compromise Head Exam: Atraumatic, Normocephalic Neck: Normal Inspection, Supple, Non-Tender, Full Range of Motion. No: Lymphadenopathy (L), Lymphadenopathy (R) Respiratory/Chest: No Respiratory Distress, Lungs Clear, Normal Breath Sounds, No Accessory Muscle Use, Chest Non-Tender Cardiovascular: Normal Peripheral Pulses, Regular Rate, Rhythm, No Edema, No Gallop, No JVD, No Murmur, No Rub Neuro Exam (Abbreviated): Alert, Oriented, CN II-XII Intact, Normal Cognition, Normal Gait, No Motor/Sensory Deficits Back Exam: Normal Inspection, Full Range of Motion. No: CVA Tenderness (L), CVA Tenderness (R) Extremities: Normal Inspection, Normal Range of Motion, Non-Tender, No Pedal Edema, Normal Capillary Refill Psychiatric: Normal Affect, Normal Mood Skin Exam: Warm, Dry, Intact, Normal Color, No Rash. No: Ecchymosis, Erythema, Mottled, Pallor, Petechiae Course - Vital Signs Last Recorded V/S: Last Vital Signs Temp 98.7 F 07/19/20 14:51 Pulse 90 07/19/20 14:51 Resp 18 07/19/20 14:51 BP 174/84 H 07/19/20 14:51 Pulse Ox 97 07/19/20 14:51 - Orders/Labs/Meds Labs: Laboratory Tests 07/19/20 07/19/20 Range/Units 15:17 15:17 WBC 10.1 H (5.0-10.0) 10^3/uL RBC 4.44 (4.2-5.4) 10^6/uL Hgb 13.5 (12.0-16.0) g/dL Hct 40.9 (37.0-47.0) % MCV 92.1 (80-100) fL MCH 30.4 (27.0-34.0) pg MCHC 33.0 (33.0-35.0) g/dL Plt Count 222 (150-450) 10^3/uL Neut % (Auto) 68.3 (42.2-75.2) % Lymph % (Auto) 20.0 L (20.5-50.1) % [place] % (Auto) 10.5 H (2-8) % Eos % (Auto) 1.0 (1.0-3.0) % Baso % (Auto) 0.2 (0.0-1.0) % ESR 12 (0-20) mm/hr Sodium 136 (136-145) mmol/L Potassium 4.1 (3.5-5.1) mmol/L Chloride 97 L (98-107) mmol/L Carbon Dioxide 29 (21-32) mmol/L Anion Gap 14.1 H (7-13) mEq/L BUN 19 H (7-18) mg/dL Creatinine 1.13 H (0.55-1.02) mg/dL Est Cr Clr Drug Dosing 27.57 mL/min Estimated GFR (MDRD) 46 BUN/Creatinine Ratio 16.8 (No establ ref range) Glucose 103 H (74-99) mg/dL Calcium 9.3 (8.5-10.1) mg/dL Total Bilirubin 0.5 (0.2-1.0) mg/dL AST 20 (15-37) U/L ALT 18 (14-59) U/L Alkaline Phosphatase 123 H (46-116) U/L C-Reactive Protein 1.1 H (0.0-0.9) mg/dL Total Protein 7.0 (6.4-8.2) g/dL Albumin 3.5 (3.4-5.0) g/dL Globulin 3.5 Albumin/Globulin Ratio 1.0 Meds: Medications Discontinued Medications Generic Name Dose Route Start Last Admin Trade Name Freq PRN Reason Stop Dose Admin Butorphanol Tartrate 2 mg 07/19/20 15:57 07/19/20 16:22 Stadol IM 07/19/20 15:58 2 mg ONETIME ONE Administration Metoclopramide HCl 10 mg 07/19/20 15:57 07/19/20 16:22 Reglan IM 07/19/20 15:58 10 mg ONETIME ONE Administration - Re-Assessments/Exams Free Text/Narrative Re-Assessment/Exam: 07/20/20 Patient resting comfortably following administration of Stadol and Reglan. CT of head unremarkable for acute process. ESR normal, CRP slightly elevated at 1.1. Discussed following up with Dr. Up tomorrow in clinic for blood pressure recheck and to assess headache status. Patient verbalized understanding and agreement with the plan of care. Departure - Departure Time of Disposition: 16:49 Disposition: Home, Self-Care 01 Condition: Good Clinical Impression: Migraine - Discharge Information *PRESCRIPTION DRUG MONITORING PROGRAM REVIEWED*: Not Applicable *COPY OF PRESCRIPTION DRUG MONITORING REPORT IN PATIENT ELSA: Not Applicable Instructions: Migraine Headache, [id number] Forms: ED Department Discharge Additional Instructions: Follow up with your primary care provider tomorrow regarding today's visit. Drink plenty of water to stay hydrated. Sepsis Event Note (ED) - Evaluation Sepsis Screening Result: No Definite Risk
[2020-07-19 15:48] LABS: ANION GAP 14.1 mEq/L (7-13)
--- NOTE | 2020-07-19 15:49 | CT ---
EXAMINATION: Head wo Cont SEX: Female AGE: 84 years CLINICAL HISTORY: 84-year-old hypertensive 180 pound female with heart disease, new headache and now left-sided weakness (facial droop). CT scan head 12 September 2019 revealed "generalized microvascular ischemic disease and right cerebellar atrophy but no acute intracranial findings." Scan technique: Volume acquisition of data emergency unenhanced CT scan of the head and brain obtained with the patient lying supine on the Siemens multislice scanner [place], [place]. All data archived in the PACS system for storage, reformatting axial/sagittal/coronal planes and study (bone/brain windows). Interpretation: 1. Generalized microvascular ischemic changes and symmetric atrophy pattern with underlying mirror-image normal ventricles unchanged since exam 12 September 2019. 2. Midline pineal and symmetric choroid plexus calcifications. No new evidence of acute intracerebral, intraventricular or subarachnoid bleed. No abnormal extracerebral/intracranial epidural/subdural hematoma. 3. No supratentorial or posterior fossa mass lesion. 4. Symmetric clear pneumatization of the paranasal and mastoid sinuses i.e. no inflammatory changes. CONCLUSION: No acute new intracranial abnormality.
[2020-07-19] MEDS ORDERED: Butorphanol 2 MG/ML SDV IM ONE (15:57)
[2020-07-19] MEDS ORDERED: Metoclopramide 10 MG/2 ML SDV IM ONE (15:57)
== END 2020-07-19 16:58 | disposition home or self-care (01) ==
LOC: DL.ED 14:20
DX: G43.909 Migraine, unspecified, not intractable, without status migrainosus (principal); I12.9 Hypertensive chronic kidney disease with stage 1 through stage 4 chronic kidney disease, or unspecified chronic kidney disease; N18.9 Chronic kidney disease, unspecified; E78.00 Pure hypercholesterolemia, unspecified; I48.91 Unspecified atrial fibrillation; K21.9 Gastro-esophageal reflux disease without esophagitis; E66.9 Obesity, unspecified; Z68.35 Body mass index [BMI] 35.0-35.9, adult; Z79.899 Other long term (current) drug therapy
CPT/HCPCS: 36415; 70450; 80053; 85025; 85651; 86140; 96372; 99284; J0595; J2765

== ENCOUNTER 2020-11-07 20:08 | Emergency (ER) | payer MEDICARE, OTHER ==
[2020-11-07] MEDS ORDERED: Aspirin 81 MG Tab.Chew PO ONE (20:19)
[2020-11-07 20:22] VITALS: PULSE 78
[2020-11-07] MEDS ORDERED: Nitroglycerin 0.4 MG Tab.SL SL ONE (20:26)
[2020-11-07 20:36] VITALS: BP 163/68
--- NOTE | 2020-11-07 20:56 | CR ---
PROCEDURE INFORMATION: Exam: XR Chest Exam date and time: 11/07/2020 8:32 PM Age: 85 years old Clinical indication: Chest pain; Prior surgery TECHNIQUE: Imaging protocol: XR of the chest Views: 1 view. COMPARISON: CR Chest 1V Frontal 09/12/2019 12:44 AM FINDINGS: The patient is rotated to the left. Tubes, catheters and devices: Dual lead transvenous pacemaker is present. Lungs: No suspicious pulmonary nodules or areas of lung consolidation. Pleural spaces: Unremarkable. No pleural effusion. No pneumothorax. Heart/Mediastinum: Unremarkable. No cardiomegaly. Bones/joints: Age appropriate. IMPRESSION: Negative chest. No significant change.
[2020-11-07] MEDS ORDERED: Nitroglycerin/D5W 25 MG/250 ML BOTTLE IV SCH (21:00)
--- NOTE | 2020-11-07 21:08 | EDM.PDOC ---
ED HPI GENERAL MEDICAL PROBLEM - General Chief Complaint: Chest Pain Stated Complaint: CHEST PRESSURE Time Seen by Provider: 11/07/20 20:20 Source of Information: Reports: Patient, Family History Limitations: Reports: No Limitations - History of Present Illness INITIAL COMMENTS - FREE TEXT/NARRATIVE: Ed with c/o chest pressure mid sternal starting around 530-6pm tonight. Sweaty with it no fever chill or cough. no similar prior episodes. No prior TX. Hx Afib, CHF pacemaker. Only on Aspirin. Tried 2 of husbands nitro at home with out relief but unsure how how old they were. Swelling of legs no change from usual. Doing more lifting Mid-Sternal Chest Pain Score (Numeric/FACES): 8 - Related Data Allergies Allergy/AdvReac Type Severity Reaction Status Date / Time No Known Allergies Allergy Verified 11/07/20 20:26 Home Meds: Home Meds Bimatoprost [Lumigan 0.03% Ophth Soln] 1 drop EYEBOTH BEDTIME 02/26/15 [History] Metoprolol Succinate [Toprol XL] 25 mg PO DAILY 02/26/15 [History] Omeprazole 20 mg PO DAILY 02/26/15 [History] atorvaSTATin [Lipitor] 10 mg PO DAILY 02/26/15 [History] Pramipexole [Mirapex] 0.25 mg PO BEDTIME 01/17/19 [History] calcitrioL [Calcitriol] 0.5 mcg PO DAILY 01/17/19 [History] metOLazone [Metolazone] 2.5 mg PO Q48H 01/17/19 [History] Diltiazem [Tiazac] 240 mg PO DAILY 11/07/20 [History] Furosemide [Lasix] 40 mg PO DAILY 11/07/20 [History] Ketoconazole 120 ml TP ASDIRECTED PRN 11/07/20 [History] allopurinoL [Zyloprim] 150 mg PO DAILY 11/07/20 [History] traZODone HCl [Trazodone HCl] 100 mg PO BEDTIME PRN 11/07/20 [History] Past Medical History HEENT History: Reports: Glaucoma, Impaired Vision, Other (See Below) Other HEENT History: WEARS CORRECTIVE LENS Cardiovascular History: Reports: Afib, High Cholesterol, Hypertension, PVD, Other (See Below) Other Cardiovascular History: CHRONIC LEG EDEMA Respiratory History: Reports: Sleep Apnea Other Respiratory History: was just in hospital in [place] for bacterial pneumonia in October 2018 Gastrointestinal History: Reports: GERD, Hiatal Hernia Genitourinary History: Reports: Chronic Renal Insuffiency, 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: Musculoskeletal History: Reports: Osteoarthritis Neurological History: Reports: Other (See Below) Other Neuro History: RESTLESS LEG SYNDROME Psychiatric History: Reports: None Endocrine/Metabolic History: Reports: Obesity/BMI 30+, Osteoporosis Hematologic History: Reports: None Immunologic History: Reports: None Oncologic (Cancer) History: Reports: None Dermatologic History: Reports: None Other Dermatologic History: lower leg discoloration - Infectious Disease History Infectious Disease History: Reports: Chicken Pox, Measles - Past Surgical History Head Surgeries/Procedures: Reports: None HEENT Surgical History: Reports: Cataract Surgery, Oral Surgery, Other (See Below) Other HEENT Surgeries/Procedures: NASAL SURG (SEPTOPLASTY). CATARACT EXTRACTION WITH iSTENT PLACEMENT BILAT EYES Cardiovascular Surgical History: Reports: None Respiratory Surgical History: Reports: None GI Surgical History: Reports: Colonoscopy, EGD, Hernia, Abdominal Female Surgical History: Reports: Hysterectomy Endocrine Surgical History: Reports: None Neurological Surgical History: Reports: None Musculoskeletal Surgical History: Reports: Hip Replacement, Knee Replacement, Other (See Below) Other Musculoskeletal Surgeries/Procedures:: FOOT SURGERY X4 HARDWARE Oncologic Surgical History: Reports: None Dermatological Surgical History: Reports: None Social & Family History - Family History Family Medical History: No Pertinent Family History - Tobacco Use Tobacco Use Status *Q: Never Tobacco User Second Hand Smoke Exposure: No - Caffeine Use Caffeine Use: Reports: Coffee Other Caffeine Use: COFFEE IN THE AM - Recreational Drug Use Recreational Drug Use: No - Living Situation & Occupation Living situation: Reports: , with Spouse Occupation: Retired ED ROS GENERAL - Review of Systems Review Of Systems: Comprehensive ROS is negative, except as noted in HPI. Constitutional: Reports: No Symptoms HEENT: Reports: Glasses Respiratory: Denies: Shortness of Breath, Wheezing, Pleuritic Chest Pain, Cough, Hemoptysis Cardiovascular: Reports: Chest Pain. Denies: Lightheadedness, Palpitations GI/Abdominal: Reports: No Symptoms Neurological: Reports: No Symptoms ED EXAM, GENERAL - Physical Exam Exam: See Below Exam Limited By: No Limitations General Appearance: Alert, Anxious, Mild Distress, Obese Eye Exam: Bilateral Eye: EOMI Ears: Normal External Exam, Hearing Loss Nose: Normal Inspection Throat/Mouth: Normal Inspection Head: Atraumatic, Normocephalic Neck: Normal Inspection Respiratory/Chest: No Respiratory Distress, Decreased Breath Sounds (bases) Cardiovascular: Normal Peripheral Pulses, Irregularly Irregular, Other. No: No Edema GI/Abdominal: Normal Bowel Sounds, Soft Extremities: Pedal Edema (3+) Neurological: Alert, Oriented, Normal Cognition Psychiatric: Normal Affect Skin Exam: Warm, Dry, Intact #1 Interpretation EKG Date: 11/07/20 Time: 20:19 Rhythm: A-Fib Rate (Beats/Min): 71 [place]: Normal P-Wave: Variable QRS: Wide EKG Interpretation Comments: atril fib with ventricular paced Course - Vital Signs Last Recorded V/S: Last Vital Signs Temp 98.2 F 11/07/20 20:17 Pulse 78 11/07/20 20:17 Resp 20 11/07/20 20:17 BP 163/68 H 11/07/20 20:35 Pulse Ox 98 11/07/20 20:17 - Orders/Labs/Meds Orders: Active Orders 24 hr Category Date Time Status Code Status [Resuscitation Status] Stat Resus Stat 11/07/20 22:20 Ordered Labs: Laboratory Tests 11/07/20 11/07/20 11/07/20 Range/Units 20:26 20:26 20:26 WBC 7.7 (5.0-10.0) 10^3/uL RBC 4.09 L (4.2-5.4) 10^6/uL Hgb 12.6 (12.0-16.0) g/dL Hct 37.8 (37.0-47.0) % MCV 92.4 (80-100) fL MCH 30.8 (27.0-34.0) pg MCHC 33.3 (33.0-35.0) g/dL Plt Count 179 (150-450) 10^3/uL Neut % (Auto) 57.6 (42.2-75.2) % Lymph % (Auto) 27.2 (20.5-50.1) % [place] % (Auto) 12.2 H (2-8) % Eos % (Auto) 2.6 (1.0-3.0) % Baso % (Auto) 0.4 (0.0-1.0) % PT (9.0-12.0) SEC INR (0.9-1.2) D-Dimer, Quantitative 3910 H (0-400) ng/mL Sodium 142 (136-145) mmol/L Potassium 4.7 (3.5-5.1) mmol/L Chloride 105 (98-107) mmol/L Carbon Dioxide 30 (21-32) mmol/L Anion Gap 11.7 (7-13) mEq/L BUN 15 (7-18) mg/dL Creatinine 1.07 H (0.55-1.02) mg/dL Est Cr Clr Drug Dosing 28.61 mL/min Estimated GFR (MDRD) 49 BUN/Creatinine Ratio 14.0 (No establ ref range) Glucose 98 (74-99) mg/dL Calcium 8.7 (8.5-10.1) mg/dL Magnesium 1.6 L (1.8-2.4) mg/dL Total Bilirubin 0.5 (0.2-1.0) mg/dL AST 22 (15-37) U/L ALT 20 (14-59) U/L Alkaline Phosphatase 106 (46-116) U/L Troponin I 0.120 H* (0.000-0.056) ng/mL B-Natriuretic Peptide 328 H (0-100) pg/ml Total Protein 6.6 (6.4-8.2) g/dL Albumin 3.2 L (3.4-5.0) g/dL Globulin 3.4 Albumin/Globulin Ratio 0.94 Amylase 42 (25-115) U/L Lipase 142 (73-393) U/L SARS-CoV-2 RNA ([place]) (NEGATIVE) 11/07/20 11/07/20 Range/Units 20:26 21:59 WBC (5.0-10.0) 10^3/uL RBC (4.2-5.4) 10^6/uL Hgb (12.0-16.0) g/dL Hct (37.0-47.0) % MCV (80-100) fL MCH (27.0-34.0) pg MCHC (33.0-35.0) g/dL Plt Count (150-450) 10^3/uL Neut % (Auto) (42.2-75.2) % Lymph % (Auto) (20.5-50.1) % [place] % (Auto) (2-8) % Eos % (Auto) (1.0-3.0) % Baso % (Auto) (0.0-1.0) % PT 10.6 D (9.0-12.0) SEC INR 1.1 (0.9-1.2) D-Dimer, Quantitative (0-400) ng/mL Sodium (136-145) mmol/L Potassium (3.5-5.1) mmol/L Chloride (98-107) mmol/L Carbon Dioxide (21-32) mmol/L Anion Gap (7-13) mEq/L BUN (7-18) mg/dL Creatinine (0.55-1.02) mg/dL Est Cr Clr Drug Dosing mL/min Estimated GFR (MDRD) BUN/Creatinine Ratio (No establ ref range) Glucose (74-99) mg/dL Calcium (8.5-10.1) mg/dL Magnesium (1.8-2.4) mg/dL Total Bilirubin (0.2-1.0) mg/dL AST (15-37) U/L ALT (14-59) U/L Alkaline Phosphatase (46-116) U/L Troponin I (0.000-0.056) ng/mL B-Natriuretic Peptide (0-100) pg/ml Total Protein (6.4-8.2) g/dL Albumin (3.4-5.0) g/dL Globulin Albumin/Globulin Ratio Amylase (25-115) U/L Lipase (73-393) U/L SARS-CoV-2 RNA ([place]) Negative (NEGATIVE) Meds: Medications Discontinued Medications Generic Name Dose Route Start Last Admin Trade Name Freq PRN Reason Stop Dose Admin Aspirin 324 mg 11/07/20 20:19 11/07/20 20:30 Aspirin 81 Mg Tab.Chew PO 11/07/20 20:20 324 mg ONETIME ONE Administration Nitroglycerin/Dextrose 25 mg in 250 mls @ 6 mls/hr 11/07/20 21:00 11/07/20 22:01 Nitroglycerin 25 Mg/D5w 250 Ml IV 20 mcg/min TITRATE LITZY 12 mls/hr Infusion Protocol 10 MCG/MIN Nitroglycerin 0.4 mg 11/07/20 20:26 11/07/20 20:35 Nitroglycerin 0.4 Mg Tab.Sl SL 11/07/20 20:27 0.4 mg ONETIME ONE Administration - Re-Assessments/Exams Free Text/Narrative Re-Assessment/Exam: 11/08/20 01:59 Dr Ivan Romano accepting patient in transfer. Tx via [facility]. Departure - Departure Time of Disposition: 22:25 Disposition: DC/Tfer to Acute Hospital 02 Reason for Transfer *Q: Other Condition: Good Clinical Impression: Elevated troponin, Chronic atrial fibrillation, Hx of acute congestive heart failure Chest pain Qualifiers: Chest pain type: unspecified Qualified Code(s): R07.9 - Chest pain, unspecified Referrals: PCP,None [Primary Care Provider] - Forms: ED Department Discharge Sepsis Event Note (ED) - Evaluation Sepsis Screening Result: No Definite Risk - Focused Exam Vital Signs: Vital Signs Temp Pulse Resp BP BP Pulse Ox 11/07/20 20:35 163/68 H 11/07/20 20:17 98.2 F 78 20 174/84 H 98 - My Orders Last 24 Hours: My Active Orders 11/07/20 22:20 Code Status [Resuscitation Status] Stat - Assessment/Plan Last 24 Hours: My Active Orders 11/07/20 22:20 Code Status [Resuscitation Status] Stat
[2020-11-07 21:21] LABS: ANION GAP 11.7 mEq/L (7-13)
== END 2020-11-07 22:28 ==
LOC: DL.ED 20:08
DX: I48.20 Chronic atrial fibrillation, unspecified (principal); I13.0 Hypertensive heart and chronic kidney disease with heart failure and stage 1 through stage 4 chronic kidney disease, or unspecified chronic kidney disease; I50.9 Heart failure, unspecified; N18.9 Chronic kidney disease, unspecified; E66.9 Obesity, unspecified; E78.00 Pure hypercholesterolemia, unspecified; K21.9 Gastro-esophageal reflux disease without esophagitis; R79.89 Other specified abnormal findings of blood chemistry; Z20.822 Contact with and (suspected) exposure to COVID-19; Z79.899 Other long term (current) drug therapy; Z68.36 Body mass index [BMI] 36.0-36.9, adult
CPT/HCPCS: 36415; 71045; 80053; 82150; 83690; 83735; 83880; 84484; 85025; 85379; 85610; 93005; 93010; 99284; 99285; A9270; J3490; U0002

== ENCOUNTER 2020-11-15 21:52 | Emergency (ER) | payer MEDICARE, OTHER ==
[2020-11-15] MEDS ORDERED: Aspirin 81 MG Tab.Chew PO ONE (22:04)
[2020-11-15] MEDS: Nitroglycerin 0.4 MG Tab.SL SL ONE ×3 (22:22→23:06)
[2020-11-15 22:30] LABS: ANION GAP 9.7 mEq/L (7-13)
--- NOTE | 2020-11-15 22:32 | EDM.PDOC ---
ED HPI GENERAL MEDICAL PROBLEM - General Chief Complaint: Chest Pain Stated Complaint: HEARTBURN Time Seen by Provider: 11/15/20 22:00 Source of Information: Reports: Patient, Family, RN History Limitations: Reports: No Limitations - History of Present Illness INITIAL COMMENTS - FREE TEXT/NARRATIVE: ED with c/o heartburn today, intermittent, nothing makes worse or better. Recent NSTEMI with stent x 1 one week ago. Omeprazole stopped by PCP. No sweating, SOB or radiation of pain, ponts midsternal. No recent cough. Chest Pain Score (Numeric/FACES): 6 - Related Data Allergies Allergy/AdvReac Type Severity Reaction Status Date / Time No Known Allergies Allergy Verified 11/15/20 22:04 Home Meds: Home Meds Bimatoprost [Lumigan 0.03% Ophth Soln] 1 drop EYEBOTH BEDTIME 02/26/15 [History] Metoprolol Succinate [Toprol XL] 25 mg PO DAILY 02/26/15 [History] atorvaSTATin [Lipitor] 10 mg PO BEDTIME 02/26/15 [History] Pramipexole [Mirapex] 0.25 mg PO DAILY 01/17/19 [History] calcitrioL [Calcitriol] 0.5 mcg PO ASDIRECTED 01/17/19 [History] metOLazone [Metolazone] 2.5 mg PO Q48H 01/17/19 [History] Furosemide [Lasix] 40 mg PO DAILY 11/07/20 [History] Ketoconazole 120 ml TP ASDIRECTED PRN 11/07/20 [History] allopurinoL [Zyloprim] 100 mg PO DAILY 11/07/20 [History] traZODone HCl [Trazodone HCl] 100 mg PO BEDTIME PRN 11/07/20 [History] Aspirin [Aspirin EC] 81 mg PO DAILY 11/15/20 [History] Clopidogrel [Plavix] 75 mg PO DAILY 11/15/20 [History] Clotrimazole/Betameth Dip/Zinc [Dermacinrx Therazole Baron] 135 gm TP BID PRN 11/15/20 [History] Fluocinonide [Lidex 0.05% Top Soln] 1 applic TOP BID PRN 11/15/20 [History] Gabapentin [Neurontin] 1,200 mg PO TID 11/15/20 [History] Oxybutynin Chloride [Ditropan Xl] 10 mg PO DAILY PRN 11/15/20 [History] Past Medical History HEENT History: Reports: Glaucoma, Impaired Vision, Other (See Below) Other HEENT History: WEARS CORRECTIVE LENS Cardiovascular History: Reports: Afib, High Cholesterol, Hypertension, PVD, Other (See Below) Other Cardiovascular History: CHRONIC LEG EDEMA Respiratory History: Reports: Sleep Apnea Other Respiratory History: was just in hospital in [place] for bacterial pneumonia in October 2018 Gastrointestinal History: Reports: GERD, Hiatal Hernia Genitourinary History: Reports: Chronic Renal Insuffiency, 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: Musculoskeletal History: Reports: Osteoarthritis Neurological History: Reports: Other (See Below) Other Neuro History: RESTLESS LEG SYNDROME Psychiatric History: Reports: None Endocrine/Metabolic History: Reports: Obesity/BMI 30+, Osteoporosis Hematologic History: Reports: None Immunologic History: Reports: None Oncologic (Cancer) History: Reports: None Dermatologic History: Reports: None Other Dermatologic History: lower leg discoloration - Infectious Disease History Infectious Disease History: Reports: Chicken Pox, Measles - Past Surgical History Head Surgeries/Procedures: Reports: None HEENT Surgical History: Reports: Cataract Surgery, Oral Surgery, Other (See Below) Other HEENT Surgeries/Procedures: NASAL SURG (SEPTOPLASTY). CATARACT EXTRACTION WITH iSTENT PLACEMENT BILAT EYES Cardiovascular Surgical History: Reports: None Respiratory Surgical History: Reports: None GI Surgical History: Reports: Colonoscopy, EGD, Hernia, Abdominal Female Surgical History: Reports: Hysterectomy Endocrine Surgical History: Reports: None Neurological Surgical History: Reports: None Musculoskeletal Surgical History: Reports: Hip Replacement, Knee Replacement, Other (See Below) Other Musculoskeletal Surgeries/Procedures:: FOOT SURGERY X4 HARDWARE Oncologic Surgical History: Reports: None Dermatological Surgical History: Reports: None Social & Family History - Family History Family Medical History: No Pertinent Family History - Caffeine Use Caffeine Use: Reports: Coffee Other Caffeine Use: COFFEE IN THE AM - Living Situation & Occupation Living situation: Reports: , with Spouse Occupation: Retired ED ROS GENERAL - Review of Systems Review Of Systems: Comprehensive ROS is negative, except as noted in HPI. ED EXAM, GENERAL - Physical Exam Exam: See Below Exam Limited By: No Limitations General Appearance: Alert, Mild Distress Eye Exam: Bilateral Eye: EOMI Ears: Normal External Exam, Hearing Grossly Normal Nose: Normal Inspection Throat/Mouth: Normal Inspection Head: Atraumatic, Normocephalic Neck: Normal Inspection Respiratory/Chest: No Respiratory Distress, Lungs Clear Cardiovascular: No Edema, Other (slightly irregular). No: JVD GI/Abdominal: Normal Bowel Sounds, Soft Extremities: Normal Inspection Neurological: Alert, Oriented, Normal Cognition Psychiatric: Normal Affect Skin Exam: Warm, Dry, Intact Course - Vital Signs Last Recorded V/S: Last Vital Signs Temp 97.5 F 11/15/20 21:55 Pulse 70 11/15/20 23:08 Resp 16 11/15/20 23:08 BP 117/53 L 11/15/20 23:08 Pulse Ox 95 11/15/20 23:08 - Orders/Labs/Meds Labs: Laboratory Tests 11/15/20 11/15/20 11/15/20 Range/Units 22:03 22:03 22:03 WBC 9.2 (5.0-10.0) 10^3/uL RBC 4.87 (4.2-5.4) 10^6/uL Hgb 14.5 D (12.0-16.0) g/dL Hct 44.9 (37.0-47.0) % MCV 92.2 (80-100) fL MCH 29.8 (27.0-34.0) pg MCHC 32.3 L (33.0-35.0) g/dL Plt Count 249 (150-450) 10^3/uL Neut % (Auto) 51.6 (42.2-75.2) % Lymph % (Auto) 31.7 (20.5-50.1) % [place] % (Auto) 13.2 H (2-8) % Eos % (Auto) 3.4 H (1.0-3.0) % Baso % (Auto) 0.1 (0.0-1.0) % PT 10.6 (9.0-12.0) SEC INR 1.1 (0.9-1.2) Sodium 142 (136-145) mmol/L Potassium 3.7 (3.5-5.1) mmol/L Chloride 100 (98-107) mmol/L Carbon Dioxide 36 H (21-32) mmol/L Anion Gap 9.7 (7-13) mEq/L BUN 26 H (7-18) mg/dL Creatinine 1.33 H (0.55-1.02) mg/dL Est Cr Clr Drug Dosing 23.02 mL/min Estimated GFR (MDRD) 38 BUN/Creatinine Ratio 19.5 (No establ ref range) Glucose 104 H (74-99) mg/dL Calcium 10.7 H D (8.5-10.1) mg/dL Magnesium 1.6 L (1.8-2.4) mg/dL Total Bilirubin 0.4 (0.2-1.0) mg/dL AST 25 (15-37) U/L ALT 37 (14-59) U/L Alkaline Phosphatase 123 H (46-116) U/L Troponin I 0.046 (0.000-0.056) ng/mL B-Natriuretic Peptide 110 H (0-100) pg/ml Total Protein 7.7 (6.4-8.2) g/dL Albumin 3.7 (3.4-5.0) g/dL Globulin 4.0 Albumin/Globulin Ratio 0.9 Amylase 52 (25-115) U/L Lipase 261 (73-393) U/L Meds: Medications Discontinued Medications Generic Name Dose Route Start Last Admin Trade Name Freq PRN Reason Stop Dose Admin Aspirin 324 mg 11/15/20 22:04 11/15/20 22:10 Aspirin 81 Mg Tab.Chew PO 11/15/20 22:05 324 mg ONETIME ONE Administration Nitroglycerin/Dextrose 25 mg in 250 mls @ 6 mls/hr 11/15/20 23:15 Nitroglycerin 25 Mg/D5w 250 Ml IV TITRATE LITZY Protocol 10 MCG/MIN Nitroglycerin 0.4 mg 11/15/20 22:07 11/15/20 23:06 Nitroglycerin 0.4 Mg Tab.Sl SL 11/15/20 22:08 0.4 mg ONETIME ONE Administration - Re-Assessments/Exams Free Text/Narrative Re-Assessment/Exam: 11/15/20 22:32 Rates pain on presentation 6/10 decrease 4-10 after Nitro x 1. Appears more relaxed. 2/10 following second 11/15/20 22:46 increased pain 5/10 Departure - Departure Time of Disposition: 00:05 Disposition: DC/Tfer to Acute Hospital 02 Reason for Transfer *Q: Other Condition: Fair Clinical Impression: NSTEMI (non-ST elevated myocardial infarction) Referrals: Rose Up MD [Primary Care Provider] - Forms: ED Department Discharge Sepsis Event Note (ED) - Evaluation Sepsis Screening Result: No Definite Risk
[2020-11-15 23:06] VITALS: BP 117/53
[2020-11-15 23:09] VITALS: PULSE 70
--- NOTE | 2020-11-15 23:09 | CR ---
PROCEDURE INFORMATION: Exam: XR Chest Exam date and time: 11/15/2020 10:49 PM Age: 85 years old Clinical indication: Chest pain TECHNIQUE: Imaging protocol: XR of the chest Views: 1 view. COMPARISON: CR Chest 1V Frontal 11/07/2020 8:32 PM FINDINGS: Tubes, catheters and devices: A pacemaker device is present, and its leads are in appropriate position. Lungs: Low lung volumes causes crowding of the bronchovascular structures. Questionable consolidation in the left retrocardiac region. Remainder of the lungs are clear. Pleural spaces: Unremarkable. No pleural effusion. No pneumothorax. Heart/Mediastinum: The heart is moderately enlarged. Bones/joints: No acute skeletal abnormality or aggressive osseous lesion. IMPRESSION: Questionable left retrocardiac consolidation, otherwise no other acute thoracic pathology is identified.
[2020-11-15] MEDS ORDERED: Nitroglycerin/D5W 25 MG/250 ML BOTTLE IV SCH (23:15)
== END 2020-11-16 00:07 ==
LOC: DL.ED 21:52
DX: I21.4 Non-ST elevation (NSTEMI) myocardial infarction (principal); I48.91 Unspecified atrial fibrillation; E78.00 Pure hypercholesterolemia, unspecified; G25.81 Restless legs syndrome; I12.9 Hypertensive chronic kidney disease with stage 1 through stage 4 chronic kidney disease, or unspecified chronic kidney disease; N18.9 Chronic kidney disease, unspecified; M19.90 Unspecified osteoarthritis, unspecified site; E66.9 Obesity, unspecified; Z68.33 Body mass index [BMI] 33.0-33.9, adult; Z79.82 Long term (current) use of aspirin; Z79.899 Other long term (current) drug therapy
CPT/HCPCS: 36415; 71045; 80053; 82150; 83690; 83735; 83880; 84484; 85025; 85610; 93005; 99284; 99285; A9270

== ENCOUNTER 2021-10-12 10:57 | Emergency (ER) | payer MEDICARE, OTHER ==
[2021-10-12 11:17] VITALS: BP 169/78; PULSE 82
[2021-10-12 12:20] LABS: PTT,PARTIAL THROMBOPLSTIN TIME 23.6 SEC (22.0-34.0)
[2021-10-12 12:21] LABS: ANION GAP 13.5 mEq/L (7-13); CHLORIDE,CL 97 mmol/L (98-107); SODIUM,NA 140 mmol/L (136-145)
[2021-10-12] MEDS ORDERED: Bumetanide 1 MG/4 ML MDV IVPUSH ONE (13:53)
== END 2021-10-12 14:19 | disposition home or self-care (01) ==
LOC: DL.ED 10:57
DX: I49.9 Cardiac arrhythmia, unspecified (principal); I13.0 Hypertensive heart and chronic kidney disease with heart failure and stage 1 through stage 4 chronic kidney disease, or unspecified chronic kidney disease; N18.9 Chronic kidney disease, unspecified; I50.9 Heart failure, unspecified; I48.91 Unspecified atrial fibrillation; E78.00 Pure hypercholesterolemia, unspecified; K21.9 Gastro-esophageal reflux disease without esophagitis; E66.9 Obesity, unspecified; Z68.33 Body mass index [BMI] 33.0-33.9, adult; Z79.82 Long term (current) use of aspirin; Z79.899 Other long term (current) drug therapy; Z20.822 Contact with and (suspected) exposure to COVID-19
CPT/HCPCS: 36415; 71045; 80053; 81003; 83605; 83880; 84484; 85025; 85610; 85730; 86140; 93005; 96374; 99285; J3490; U0002

== ENCOUNTER 2022-01-07 21:45 | Observation (INO) | payer MEDICARE, OTHER ==
[2022-01-07] MEDS ORDERED: Morphine 2 MG/ML SYRINGE IVPUSH ONE (23:35)
[2022-01-07] MEDS ORDERED: Ondansetron 4 MG/2 ML SDV IVPUSH ONE (23:35)
[2022-01-07] MEDS ORDERED: fentaNYL 100 MCG/2 ML SDV IV ONE (23:42)
[2022-01-07] MEDS ORDERED: Morphine 2 MG/ML SYRINGE IV ONE (23:42)
[2022-01-07] MEDS ORDERED: Ondansetron 4 MG/2 ML SDV IV ONE (23:42)
[2022-01-07 23:43] LABS: ANION GAP 11.4 mEq/L (7-13)
[2022-01-08] MEDS ORDERED: fentaNYL 100 MCG/2 ML SDV IVPUSH ONE (00:29)
[2022-01-08] MEDS ORDERED: Acetaminophen/oxyCODONE 325-5 MG Tab PO ONE ×2 (03:03→03:13)
[2022-01-08] MEDS ORDERED: fentaNYL 100 MCG/2 ML SDV IVPUSH PRN (06:42)
[2022-01-08] MEDS ORDERED: Morphine 2 MG/ML SYRINGE IVPUSH PRN (08:30)
[2022-01-08] MEDS ORDERED: Ondansetron 4 MG/2 ML SDV IVPUSH PRN (08:31)
[2022-01-08] MEDS: Acetaminophen/HYDROcodone 325-5 MG Tab PO PRN ×3 (09:47→19:59)
[2022-01-08] MEDS ORDERED: PRAMIPEXOLE 0.25 MG PO SCH (21:00)
[2022-01-08] MEDS ORDERED: traZODone 50 MG Tab PO PRN (21:52)
[2022-01-08] MEDS: Heparin Sodium 5,000 Units/ML Vial SUBCUT SCH (22:22)
[2022-01-08] MEDS: Gabapentin 300 MG Cap ** OWN MED PO SCH (22:22)
[2022-01-09] MEDS: Acetaminophen/HYDROcodone 325-5 MG Tab PO PRN ×2 (05:44)
[2022-01-09] MEDS ORDERED: Pantoprazole 40 MG Tab.CR PO SCH (06:00)
[2022-01-09 08:01] VITALS: BP 132/58; PULSE 71
[2022-01-09] MEDS ORDERED: Calcitriol 0.25 MCG Cap PO SCH (09:00)
[2022-01-09] MEDS ORDERED: BUMETANIDE 0.5 MG PO SCH (09:00)
[2022-01-09] MEDS ORDERED: Pantoprazole 40 MG Tab.CR ** OWN MED PO SCH (09:00)
[2022-01-09] MEDS ORDERED: METOPROLOL SUCCINATE 25 MG PO SCH (09:00)
[2022-01-09] MEDS ORDERED: Aspirin 81 MG Tab.EC **PT OWN MED PO SCH (09:00)
[2022-01-09] MEDS ORDERED: ATORVASTATIN 10 MG PO SCH (09:00)
[2022-01-09] MEDS ORDERED: OXYBUTYNIN CHLORIDE 10 MG PO SCH (09:00)
[2022-01-09] MEDS ORDERED: Allopurinol 100 MG Tab **PT OWN MED PO SCH (09:00)
[2022-01-09] MEDS: Gabapentin 300 MG Cap ** OWN MED PO SCH (09:31)
[2022-01-09] MEDS: Heparin Sodium 5,000 Units/ML Vial SUBCUT SCH (09:31)
[2022-01-10] MEDS ORDERED: Metolazone 2.5 MG Tab PO SCH (08:30)
== END 2022-01-09 11:10 | disposition home or self-care (01) ==
LOC: DL.ED 21:45 → DL.MS 01-08 05:50
PROVIDERS: ADMIT Internal Medicine; ATTEND Internal Medicine
DX: S20.211A Contusion of right front wall of thorax, initial encounter (principal); S00.83XA Contusion of other part of head, initial encounter; H91.90 Unspecified hearing loss, unspecified ear; I48.91 Unspecified atrial fibrillation; E78.00 Pure hypercholesterolemia, unspecified; I12.9 Hypertensive chronic kidney disease with stage 1 through stage 4 chronic kidney disease, or unspecified chronic kidney disease; K21.9 Gastro-esophageal reflux disease without esophagitis; N18.9 Chronic kidney disease, unspecified; G25.81 Restless legs syndrome; M19.90 Unspecified osteoarthritis, unspecified site; R60.0 Localized edema; E66.9 Obesity, unspecified; Z20.822 Contact with and (suspected) exposure to COVID-19; Z79.899 Other long term (current) drug therapy; W19.XXXA Unspecified fall, initial encounter; Y92.009 Unspecified place in unspecified non-institutional (private) residence as the place of occurrence of the external cause; Z79.82 Long term (current) use of aspirin
CPT/HCPCS: 36415; 70450; 71250; 72125; 74176; 80053; 82150; 83690; 83880; 84484; 85025; 85610; 93005; 96372; 96375; 97161; 97165; A9270; G0378; J1644; J2270; J2405; J3010; U0002; 93010; 99284; 99285-25

== ENCOUNTER 2022-03-03 21:13 | Emergency (ER) | payer MEDICARE, OTHER ==
[2022-03-03 22:20] LABS: ANION GAP 12.1 mEq/L (7-13); CHLORIDE,CL 94 mmol/L (98-107); SODIUM,NA 131 mmol/L (136-145)
[2022-03-03 22:23] LABS: ESTIMATED GFR 44 mL/min (>=60)
[2022-03-03] MEDS ORDERED: Potassium Chloride 10 MEQ Tab.ER PO ONE (22:34)
== END 2022-03-03 23:15 | disposition home or self-care (01) ==
LOC: DL.ED 21:13
DX: S00.83XA Contusion of other part of head, initial encounter (principal); E87.6 Hypokalemia; K21.9 Gastro-esophageal reflux disease without esophagitis; I10 Essential (primary) hypertension; E66.9 Obesity, unspecified; Z68.30 Body mass index [BMI] 30.0-30.9, adult; Z79.01 Long term (current) use of anticoagulants; Z79.899 Other long term (current) drug therapy; Z79.82 Long term (current) use of aspirin; Z90.710 Acquired absence of both cervix and uterus; W19.XXXA Unspecified fall, initial encounter
CPT/HCPCS: 36415; 70450; 70486; 72125; 72192; 80053; 80307; 81003; 84484; 85025; 85610; 93005; 99285; A9270

== ENCOUNTER 2022-04-17 16:59 | Emergency (ER) | payer MEDICARE, OTHER ==
[2022-04-17 18:07] VITALS: BP 189/87; PULSE 73
[2022-04-17] MEDS ORDERED: Sodium Chloride 0.9% 10 ML Syringe FLUSH PRN (18:25)
[2022-04-17 18:28] LABS: CORONAVIRUS COVID-19 NAA POSITIVE (NEGATIVE)
[2022-04-17 19:15] LABS: PTT,PARTIAL THROMBOPLSTIN TIME 19.2 SEC (22.0-34.0)
[2022-04-17 19:25] LABS: ANION GAP 12.1 mEq/L (7-13); CHLORIDE,CL 103 mmol/L (98-107); SODIUM,NA 141 mmol/L (136-145)
[2022-04-17 19:26] LABS: ESTIMATED GFR 50 mL/min (>=60)
[2022-04-17] MEDS ORDERED: Acetaminophen 325 MG Tab PO ONE (20:03)
[2022-04-17] MEDS ORDERED: Iopamidol 755 Mg/ML 100 ML Bottle IVPUSH ONE (20:06)
[2022-04-17] MEDS ORDERED: Magnesium Sulfate/Water 2 GM in Premix Bag 1 BAG IV ONE (20:08)
== END 2022-04-17 23:48 | disposition home or self-care (01) ==
LOC: DL.ED 16:59
DX: U07.1 COVID-19 (principal); M54.6 Pain in thoracic spine; E83.42 Hypomagnesemia; I48.91 Unspecified atrial fibrillation; I12.9 Hypertensive chronic kidney disease with stage 1 through stage 4 chronic kidney disease, or unspecified chronic kidney disease; N18.9 Chronic kidney disease, unspecified; K21.9 Gastro-esophageal reflux disease without esophagitis; M19.90 Unspecified osteoarthritis, unspecified site; E66.9 Obesity, unspecified; Z68.23 Body mass index [BMI] 23.0-23.9, adult; Z79.82 Long term (current) use of aspirin; Z79.899 Other long term (current) drug therapy
CPT/HCPCS: 0240U; 36415; 71045; 71260; 80053; 81001; 83605; 83735; 83880; 84145; 84443; 84484; 85025; 85379; 85610; 85730; 87086; 93005; 96365; 96366; 99285; A9270; J3475; Q9967

== ENCOUNTER 2022-05-17 00:25 | Emergency (ER) | payer MEDICARE, OTHER ==
[2022-05-17] MEDS ORDERED: methylPREDNISolone Sodium Succinate 125 MG/2 ML SDV IVPUSH ONE (01:33)
[2022-05-17 02:35] VITALS: BP 120/61; PULSE 70
[2022-05-17 02:49] LABS: ANION GAP 13.6 mEq/L (7-13)
[2022-05-17] MEDS ORDERED: Iopamidol 755 Mg/ML 100 ML Bottle IVPUSH ONE (04:18)
[2022-05-17] MEDS ORDERED: Levofloxacin/Dextrose 5%-Water 500 MG in Premix Bag 1 BAG IV ONE (06:02)
[2022-05-17] MEDS ORDERED: Heparin Sodium 5,000 Units/ML Vial IVPUSH ONE (06:56)
[2022-05-17] MEDS ORDERED: Heparin Sodium/0.45% NaCl 25,000 UNITS/500 ML BAG IV ONE (07:00)
== END 2022-05-17 09:06 ==
LOC: DL.ED 00:25
DX: I26.99 Other pulmonary embolism without acute cor pulmonale (principal); I48.91 Unspecified atrial fibrillation; Z86.16 Personal history of COVID-19; Z79.899 Other long term (current) drug therapy
CPT/HCPCS: 36415; 71045; 71260; 80053; 81001; 82150; 83605; 83690; 83735; 83880; 84484; 85025; 85379; 85610; 87040; 93005; 96365; 96366; 96367; 96375; 99285-25; J1644; J1956; J2930; Q9967

== ENCOUNTER 2022-09-05 10:35 | Emergency (ER) | payer MEDICARE, OTHER ==
[2022-09-05 11:26] VITALS: BP 198/72; PULSE 91
[2022-09-05 11:49] LABS: ANION GAP 12.4 mEq/L (7-13); CHLORIDE,CL 102 mmol/L (98-107); SODIUM,NA 139 mmol/L (136-145)
[2022-09-05 11:52] LABS: ESTIMATED GFR 50 mL/min (>=60)
[2022-09-05 11:57] LABS: CORONAVIRUS COVID-19 NAA NEGATIVE (NEGATIVE); RESPIRATORY SYNCYTIAL VIR NAA NEGATIVE (NEGATIVE)
[2022-09-05] MEDS ORDERED: Iopamidol 612 MG/ML 100 ML Bottle IVPUSH ONE (12:35)
[2022-09-05] MEDS ORDERED: Cyclobenzaprine 10 MG Tab PO ONE (13:31)
== END 2022-09-05 14:03 | disposition home or self-care (01) ==
LOC: DL.ED 10:35
DX: J01.30 Acute sphenoidal sinusitis, unspecified (principal); J32.0 Chronic maxillary sinusitis; M50.00 Cervical disc disorder with myelopathy, unspecified cervical region; G44.86 Cervicogenic headache; I48.91 Unspecified atrial fibrillation; I48.92 Unspecified atrial flutter; E78.00 Pure hypercholesterolemia, unspecified; K21.9 Gastro-esophageal reflux disease without esophagitis; I12.9 Hypertensive chronic kidney disease with stage 1 through stage 4 chronic kidney disease, or unspecified chronic kidney disease; N18.9 Chronic kidney disease, unspecified; E66.9 Obesity, unspecified; Z68.30 Body mass index [BMI] 30.0-30.9, adult; Z79.899 Other long term (current) drug therapy; Z79.82 Long term (current) use of aspirin; Z79.01 Long term (current) use of anticoagulants; Z20.822 Contact with and (suspected) exposure to COVID-19
CPT/HCPCS: 0241U; 36415; 70450; 70491; 72125; 80053; 80307; 81001; 83605; 83735; 84484; 85025; 86140; 87086; 93005; 99284; A9270; Q9967

== ENCOUNTER 2023-06-18 16:23 | Inpatient (IN) | payer MEDICARE, OTHER ==
[2023-06-18 16:53] LABS: BASOPHILS PERCENT AUTO 0.2 % (0.0-1.0); EOSINOPHILS PERCENT AUTO 1.4 % (1.0-3.0); HEMATOCRIT 41.9 % (37.0-47.0); LYMPHOCYTES PERCENT AUTO 31.8 % (20.5-50.1); MEAN CORPUSCULAR HEMOGLOBIN 31.7 pg (27.0-34.0); MEAN CORPUSCULAR HGB CONC 33.4 g/dL (33.0-35.0); MONOCYTES PERCENT AUTO 10.9 % (2-8); NEUTROPHILS PERCENT AUTO 55.7 % (42.2-75.2); PLATELET COUNT,PLT 219 10^3/uL (150-450); RED BLOOD CELL COUNT 4.41 10^6/uL (4.2-5.4); WHITE BLOOD CELL COUNT,WBC 8.4 10^3/uL (5.0-10.0)
[2023-06-18 17:11] LABS: PROTHROMBIN TIME 9.8 SEC (9.0-12.0); PTT,PARTIAL THROMBOPLSTIN TIME 24.3 SEC (22.0-34.0)
[2023-06-18 17:15] LABS: A/G RATIO 0.9; ALANINE AMINOTRANSFERASE,ALT 14 U/L (14-59); ALBUMIN 3.5 g/dL (3.4-5.0); ALKALINE PHOSPHATASE 79 U/L (46-116); ANION GAP 11.9 mEq/L (7-13); ASPARTATE AMNIOTRANSFERASE,AST 15 U/L (15-37); BILIRUBIN TOTAL 0.4 mg/dL (0.2-1.0); BLOOD UREA NITROGEN,BUN 23 mg/dL (7-18); BUN/CREATININE RATIO 17.6 (No establ ref range); CALCIUM 8.9 mg/dL (8.5-10.1); CARBON DIOXIDE,CO2 30 mmol/L (21-32); CHLORIDE,CL 101 mmol/L (98-107); CREATININE 1.31 mg/dL (0.55-1.02); GLUCOSE RANDOM 108 mg/dL (70-99); POTASSIUM,K 3.9 mmol/L (3.5-5.1); PROTEIN TOTAL,TP 7.3 g/dL (6.4-8.2); SODIUM,NA 139 mmol/L (136-145)
[2023-06-18 17:16] LABS: ESTIMATED GFR 40 mL/min (>=60)
[2023-06-18] MEDS ORDERED: Iopamidol 755 Mg/ML 100 ML Bottle IVPUSH ONE (17:20)
[2023-06-18] MEDS ORDERED: Sodium Chloride 0.9% 500 ML IV SCH (17:30)
[2023-06-18 17:32] LABS: APPEARANCE,URINE CLEAR (CLEAR); BILIRUBIN,URINE NEGATIVE (NEGATIVE); COLOR,URINE YELLOW (YELLOW); GLUCOSE,URINE NEGATIVE (NEGATIVE); KETONES,URINE NEGATIVE (NEGATIVE); LEUKOCYTE ESTERASE,URINE SMALL (NEGATIVE); NITRITE,URINE NEGATIVE (NEGATIVE); OCCULT BLOOD,URINE NEGATIVE (NEGATIVE); PH,URINE 6.5 (5.0-9.0); PROTEIN,URINE NEGATIVE (NEGATIVE); UROBILINOGEN,URINE 0.2 mg/dL (0.2-1.0)
[2023-06-18 17:42] LABS: BACTERIA,URINE FEW /HPF (0-FEW/HPF); EPITHELIAL CELLS,URINE FEW /HPF (NOT SEEN); MUCUS,URINE RARE /LPF (NOT SEEN); RBC,URINE NOT SEEN /HPF (0-5)
[2023-06-18] MEDS: Sodium Chloride 0.9% 10 ML Syringe FLUSH PRN (17:44)
[2023-06-18] MEDS ORDERED: Aspirin 325 MG Tab PO STA (19:45)
[2023-06-18] MEDS: hydrALAZINE 20 MG/ML SDV IVPUSH PRN (19:45)
[2023-06-18] MEDS ORDERED: LORazepam 2 MG/ML SDV ONE (20:50)
[2023-06-18] MEDS ORDERED: Flumazenil 0.1 MG/ML 5 ML MDV IVPUSH PRN (20:53)
[2023-06-18] MEDS ORDERED: LORazepam 2 MG/ML SDV IVPUSH ONE (20:53)
[2023-06-18] MEDS ORDERED: Acetaminophen/Butalbital/Caffeine 325-50-40 MG Tab PO PRN (20:54)
[2023-06-18] MEDS ORDERED: Metoprolol Tartrate 5 MG/5 ML SDV IVPUSH PRN (20:56)
[2023-06-18] MEDS ORDERED: hydrALAZINE 20 MG/ML SDV IVPUSH PRN (20:56)
[2023-06-18] MEDS ORDERED: Acetaminophen 325 MG Tab PO PRN (20:57)
[2023-06-18] MEDS ORDERED: Metoprolol Tartrate 5 MG/5 ML SDV IVPUSH ONE (20:57)
[2023-06-18] MEDS ORDERED: Ondansetron 4 MG/2 ML SDV IVPUSH PRN (20:57)
[2023-06-18] MEDS ORDERED: Magnesium Hydroxide 400 MG/5 ML Susp 30 ML Cup PO PRN (20:57)
[2023-06-18] MEDS ORDERED: Albuterol/Ipratropium 3.0-0.5 MG/3 ML Neb Soln NEB PRN (20:57)
[2023-06-18] MEDS ORDERED: Polyethylene Glycol 3350 Powder 17 GM Packet PO PRN (20:57)
[2023-06-18] MEDS ORDERED: Amiodarone 150 MG/3 ML SDV ONE (20:57)
[2023-06-18] MEDS ORDERED: Naloxone 2 MG/2 ML Syringe IVPUSH PRN (20:59)
[2023-06-18 21:21] LABS: T4 FREE 1.07 ng/dL (0.76-1.46); TSH ULTRASENSITIVE 1.77 uIU/mL (0.36-3.74)
[2023-06-19 06:42] LABS: HEMOGLOBIN A1C 5.5 % (<5.7)
[2023-06-19 06:43] LABS: BASOPHILS PERCENT AUTO 0.3 % (0.0-1.0); EOSINOPHILS PERCENT AUTO 1.9 % (1.0-3.0); HEMATOCRIT 38.1 % (37.0-47.0); HEMOGLOBIN 12.7 g/dL (12.0-16.0); LYMPHOCYTES PERCENT AUTO 30.5 % (20.5-50.1); MEAN CORPUSCULAR HEMOGLOBIN 31.6 pg (27.0-34.0); MEAN CORPUSCULAR HGB CONC 33.3 g/dL (33.0-35.0); MEAN CORPUSCULAR VOLUME 94.8 fL (80-100); MONOCYTES PERCENT AUTO 12.2 % (2-8); NEUTROPHILS PERCENT AUTO 55.1 % (42.2-75.2); PLATELET COUNT,PLT 195 10^3/uL (150-450); RED BLOOD CELL COUNT 4.02 10^6/uL (4.2-5.4); WHITE BLOOD CELL COUNT,WBC 7.7 10^3/uL (5.0-10.0)
[2023-06-19 06:53] LABS: ANION GAP 9.9 mEq/L (7-13); BILIRUBIN TOTAL 0.2 mg/dL (0.2-1.0); BUN/CREATININE RATIO 14.3 (No establ ref range); CALCIUM 8.6 mg/dL (8.5-10.1); CREATININE 0.98 mg/dL (0.55-1.02); EST CRCL DRUG DOSING (CG) 30.15 mL/min; MAGNESIUM 1.7 mg/dL (1.8-2.4); POTASSIUM,K 3.9 mmol/L (3.5-5.1); PROTEIN TOTAL,TP 6.2 g/dL (6.4-8.2)
[2023-06-19 06:57] LABS: A/G RATIO 0.94
[2023-06-19] MEDS: Metoprolol Succinate 50 MG Tab.ER PO SCH (09:08)
[2023-06-19] MEDS: Pantoprazole 40 MG Tab.CR PO SCH (18:08)
[2023-06-19] MEDS: Sennosides/Docusate Sodium 50-8.6 MG Tab PO PRN (18:10)
[2023-06-19] MEDS: atorvaSTATin 10 MG Tab PO SCH (20:46)
[2023-06-19] MEDS: Apixaban 5 MG Tab PO SCH (20:46)
[2023-06-19] MEDS ORDERED: LORazepam 1 MG Tab PO STA (20:51)
[2023-06-19] MEDS: Calcium Carbonate 500 MG Tab.Chew PO PRN (20:57)
[2023-06-19] MEDS: hydrALAZINE 20 MG/ML SDV IVPUSH PRN (23:45)
[2023-06-20] MEDS: HYDROmorphone 0.5 MG/0.5 ML Syringe IVPUSH PRN (02:55)
[2023-06-20] MEDS: Pantoprazole 40 MG Tab.CR PO SCH ×2 (05:44→16:53)
[2023-06-20 07:08] LABS: BASOPHILS PERCENT AUTO 0.5 % (0.0-1.0); EOSINOPHILS PERCENT AUTO 2.9 % (1.0-3.0); LYMPHOCYTES PERCENT AUTO 26.5 % (20.5-50.1); MEAN CORPUSCULAR HEMOGLOBIN 31.1 pg (27.0-34.0); MEAN CORPUSCULAR HGB CONC 32.5 g/dL (33.0-35.0); MEAN CORPUSCULAR VOLUME 95.7 fL (80-100); MONOCYTES PERCENT AUTO 12.9 % (2-8); NEUTROPHILS PERCENT AUTO 57.2 % (42.2-75.2); PLATELET COUNT,PLT 187 10^3/uL (150-450); RED BLOOD CELL COUNT 4.18 10^6/uL (4.2-5.4); WHITE BLOOD CELL COUNT,WBC 8.6 10^3/uL (5.0-10.0)
[2023-06-20 07:43] LABS: ALBUMIN 2.9 g/dL (3.4-5.0); ANION GAP 11.6 mEq/L (7-13); BILIRUBIN TOTAL 0.6 mg/dL (0.2-1.0); BUN/CREATININE RATIO 13.8 (No establ ref range); CALCIUM 8.8 mg/dL (8.5-10.1); CREATININE 1.09 mg/dL (0.55-1.02); EST CRCL DRUG DOSING (CG) 27.1 mL/min; MAGNESIUM 1.7 mg/dL (1.8-2.4); POTASSIUM,K 3.6 mmol/L (3.5-5.1); PROTEIN TOTAL,TP 6.2 g/dL (6.4-8.2)
[2023-06-20 07:44] LABS: A/G RATIO 0.88
[2023-06-20] MEDS: Metoprolol Succinate 50 MG Tab.ER PO SCH (09:05)
[2023-06-20] MEDS: Apixaban 5 MG Tab PO SCH ×2 (09:05→21:14)
[2023-06-20] MEDS: Sodium Chloride 0.9% 10 ML Syringe FLUSH PRN ×2 (09:08→09:16)
[2023-06-20] MEDS ORDERED: Metoprolol Succinate 50 MG Tab.ER PO ONE (10:30)
[2023-06-20] MEDS ORDERED: LORazepam 0.5 MG Tab PO PRN (13:45)
[2023-06-20] MEDS ORDERED: traZODone 50 MG Tab PO PRN (14:15)
[2023-06-20] MEDS ORDERED: Pantoprazole 40 MG Tab.CR PO SCH (21:00)
[2023-06-20] MEDS: Gabapentin 100 MG Cap PO SCH (21:14)
[2023-06-20] MEDS: atorvaSTATin 10 MG Tab PO SCH (21:14)
[2023-06-20] MEDS: Pramipexole 0.5 MG Tab PO SCH (21:14)
[2023-06-20] MEDS: Latanoprost 0.005% Ophth Soln 2.5 ML Bottle EYEBOTH SCH (21:25)
[2023-06-21 06:43] LABS: BASOPHILS PERCENT AUTO 0.3 % (0.0-1.0); EOSINOPHILS PERCENT AUTO 3.2 % (1.0-3.0); LYMPHOCYTES PERCENT AUTO 30.3 % (20.5-50.1); MEAN CORPUSCULAR HEMOGLOBIN 31.1 pg (27.0-34.0); MEAN CORPUSCULAR HGB CONC 32.5 g/dL (33.0-35.0); MEAN CORPUSCULAR VOLUME 95.7 fL (80-100); MONOCYTES PERCENT AUTO 12.3 % (2-8); NEUTROPHILS PERCENT AUTO 53.9 % (42.2-75.2); PLATELET COUNT,PLT 198 10^3/uL (150-450); RED BLOOD CELL COUNT 4.18 10^6/uL (4.2-5.4); WHITE BLOOD CELL COUNT,WBC 7.9 10^3/uL (5.0-10.0)
[2023-06-21] MEDS: Pantoprazole 40 MG Tab.CR PO SCH ×2 (07:01→16:23)
[2023-06-21 07:03] LABS: ALBUMIN 2.8 g/dL (3.4-5.0); BILIRUBIN TOTAL 0.9 mg/dL (0.2-1.0); BUN/CREATININE RATIO 14.2 (No establ ref range); CALCIUM 8.5 mg/dL (8.5-10.1); CREATININE 1.2 mg/dL (0.55-1.02); EST CRCL DRUG DOSING (CG) 24.62 mL/min; MAGNESIUM 1.7 mg/dL (1.8-2.4); PROTEIN TOTAL,TP 6.2 g/dL (6.4-8.2)
[2023-06-21 07:15] LABS: A/G RATIO 0.82
[2023-06-21] MEDS ORDERED: Magnesium Oxide 400 MG Tab PO ONE (08:16)
[2023-06-21] MEDS ORDERED: atorvaSTATin 10 MG Tab PO SCH (09:00)
[2023-06-21] MEDS: Apixaban 5 MG Tab PO SCH ×2 (09:13→20:55)
[2023-06-21] MEDS: Aspirin 81 MG Tab.EC PO SCH (09:13)
[2023-06-21] MEDS: Oxybutynin 5 MG Tab.ER PO SCH (09:13)
[2023-06-21] MEDS: Sertraline 50 MG Tab PO SCH (09:14)
[2023-06-21] MEDS: amLODIPine 5 MG Tab PO SCH (09:14)
[2023-06-21] MEDS: Bumetanide 1 MG Tab PO SCH (09:15)
[2023-06-21] MEDS: Metoprolol Succinate 50 MG Tab.ER PO SCH (09:16)
[2023-06-21 13:40] LABS: BASOPHILS PERCENT AUTO 0.4 % (0.0-1.0); EOSINOPHILS PERCENT AUTO 1.2 % (1.0-3.0); LYMPHOCYTES PERCENT AUTO 18.6 % (20.5-50.1); MEAN CORPUSCULAR HEMOGLOBIN 31.3 pg (27.0-34.0); MEAN CORPUSCULAR HGB CONC 32.6 g/dL (33.0-35.0); MONOCYTES PERCENT AUTO 9.5 % (2-8); NEUTROPHILS PERCENT AUTO 70.3 % (42.2-75.2); PLATELET COUNT,PLT 219 10^3/uL (150-450); RED BLOOD CELL COUNT 4.48 10^6/uL (4.2-5.4); WHITE BLOOD CELL COUNT,WBC 10.8 10^3/uL (5.0-10.0)
[2023-06-21] MEDS ORDERED: Clopidogrel 75 MG Tab PO SCH (13:45)
[2023-06-21] MEDS: Sodium Chloride 0.9% 1,000 ML IV SCH (13:45)
[2023-06-21 14:03] LABS: ALBUMIN 3.3 g/dL (3.4-5.0); ANION GAP 13.7 mEq/L (7-13); BILIRUBIN TOTAL 0.8 mg/dL (0.2-1.0); BUN/CREATININE RATIO 14.1 (No establ ref range); CREATININE 1.42 mg/dL (0.55-1.02); EST CRCL DRUG DOSING (CG) 20.8 mL/min; POTASSIUM,K 3.7 mmol/L (3.5-5.1)
[2023-06-21 14:09] LABS: A/G RATIO 0.89
[2023-06-21] MEDS: Clopidogrel 75 MG Tab PO SCH (14:41)
[2023-06-21] MEDS: Latanoprost 0.005% Ophth Soln 2.5 ML Bottle EYEBOTH SCH (20:53)
[2023-06-21] MEDS: Pramipexole 0.5 MG Tab PO SCH (20:55)
[2023-06-21] MEDS: Gabapentin 100 MG Cap PO SCH (20:55)
[2023-06-21] MEDS: atorvaSTATin 10 MG Tab PO SCH (20:55)
[2023-06-22] MEDS: Sodium Chloride 0.9% 1,000 ML IV SCH (03:00)
[2023-06-22] MEDS: Pantoprazole 40 MG Tab.CR PO SCH ×2 (05:54→16:35)
[2023-06-22] MEDS: Apixaban 5 MG Tab PO SCH ×2 (08:51→20:01)
[2023-06-22] MEDS: amLODIPine 5 MG Tab PO SCH (08:51)
[2023-06-22] MEDS: Aspirin 81 MG Tab.EC PO SCH (08:52)
[2023-06-22] MEDS: Sertraline 50 MG Tab PO SCH (08:52)
[2023-06-22] MEDS: Oxybutynin 5 MG Tab.ER PO SCH (08:52)
[2023-06-22] MEDS: Bumetanide 1 MG Tab PO SCH (08:53)
[2023-06-22] MEDS: Clopidogrel 75 MG Tab PO SCH (08:54)
[2023-06-22] MEDS: Metoprolol Succinate 50 MG Tab.ER PO SCH (08:54)
[2023-06-22] MEDS: HYDROmorphone 0.5 MG/0.5 ML Syringe IVPUSH PRN (10:28)
[2023-06-22] MEDS: Acetaminophen/HYDROcodone 325-5 MG Tab PO PRN ×2 (13:31→20:01)
[2023-06-22] MEDS: atorvaSTATin 10 MG Tab PO SCH (20:00)
[2023-06-22] MEDS: Pramipexole 0.5 MG Tab PO SCH (20:01)
[2023-06-22] MEDS: Gabapentin 100 MG Cap PO SCH (20:01)
[2023-06-22] MEDS: Latanoprost 0.005% Ophth Soln 2.5 ML Bottle EYEBOTH SCH (21:22)
[2023-06-23] MEDS: Acetaminophen/HYDROcodone 325-5 MG Tab PO PRN ×2 (04:00→17:42)
[2023-06-23 06:15] LABS: BASOPHILS PERCENT AUTO 0.2 % (0.0-1.0); EOSINOPHILS PERCENT AUTO 0.4 % (1.0-3.0); HEMATOCRIT 39.1 % (37.0-47.0); HEMOGLOBIN 12.7 g/dL (12.0-16.0); LYMPHOCYTES PERCENT AUTO 15.2 % (20.5-50.1); MEAN CORPUSCULAR HEMOGLOBIN 30.8 pg (27.0-34.0); MEAN CORPUSCULAR HGB CONC 32.5 g/dL (33.0-35.0); MEAN CORPUSCULAR VOLUME 94.9 fL (80-100); MONOCYTES PERCENT AUTO 12.9 % (2-8); NEUTROPHILS PERCENT AUTO 71.3 % (42.2-75.2); PLATELET COUNT,PLT 194 10^3/uL (150-450); RED BLOOD CELL COUNT 4.12 10^6/uL (4.2-5.4); WHITE BLOOD CELL COUNT,WBC 10.4 10^3/uL (5.0-10.0)
[2023-06-23 06:24] LABS: ANION GAP 9.4 mEq/L (7-13); CALCIUM 8.6 mg/dL (8.5-10.1); CREATININE 1.01 mg/dL (0.55-1.02); EST CRCL DRUG DOSING (CG) 29.25 mL/min; POTASSIUM,K 3.4 mmol/L (3.5-5.1)
[2023-06-23] MEDS: Pantoprazole 40 MG Tab.CR PO SCH ×2 (06:29→16:37)
[2023-06-23] MEDS ORDERED: Potassium Chloride 10 MEQ Tab.ER PO ONE (08:23)
[2023-06-23] MEDS: Apixaban 5 MG Tab PO SCH ×2 (08:32→21:03)
[2023-06-23] MEDS: Oxybutynin 5 MG Tab.ER PO SCH (08:33)
[2023-06-23] MEDS: Sertraline 50 MG Tab PO SCH (08:34)
[2023-06-23] MEDS: Metoprolol Succinate 50 MG Tab.ER PO SCH (08:34)
[2023-06-23] MEDS: amLODIPine 5 MG Tab PO SCH (08:35)
[2023-06-23] MEDS: Clopidogrel 75 MG Tab PO SCH (08:35)
[2023-06-23] MEDS: Bumetanide 1 MG Tab PO SCH (08:35)
[2023-06-23] MEDS: Aspirin 81 MG Tab.EC PO SCH (08:39)
[2023-06-23] MEDS: Gabapentin 300 MG Cap PO SCH (21:03)
[2023-06-23] MEDS: Pramipexole 0.5 MG Tab PO SCH (21:03)
[2023-06-23] MEDS: atorvaSTATin 10 MG Tab PO SCH (21:03)
[2023-06-23] MEDS: Latanoprost 0.005% Ophth Soln 2.5 ML Bottle EYEBOTH SCH (21:04)
[2023-06-24] MEDS: Pantoprazole 40 MG Tab.CR PO SCH ×2 (05:22→16:27)
[2023-06-24 06:31] LABS: BASOPHILS PERCENT AUTO 0.2 % (0.0-1.0); EOSINOPHILS PERCENT AUTO 0.7 % (1.0-3.0); HEMATOCRIT 38.4 % (37.0-47.0); HEMOGLOBIN 12.6 g/dL (12.0-16.0); LYMPHOCYTES PERCENT AUTO 18.9 % (20.5-50.1); MEAN CORPUSCULAR HEMOGLOBIN 31.3 pg (27.0-34.0); MEAN CORPUSCULAR HGB CONC 32.8 g/dL (33.0-35.0); MEAN CORPUSCULAR VOLUME 95.3 fL (80-100); MONOCYTES PERCENT AUTO 15.3 % (2-8); NEUTROPHILS PERCENT AUTO 64.9 % (42.2-75.2); PLATELET COUNT,PLT 196 10^3/uL (150-450); RED BLOOD CELL COUNT 4.03 10^6/uL (4.2-5.4); WHITE BLOOD CELL COUNT,WBC 8.2 10^3/uL (5.0-10.0)
[2023-06-24 06:50] LABS: ANION GAP 11.8 mEq/L (7-13); CALCIUM 8.6 mg/dL (8.5-10.1); CREATININE 1.02 mg/dL (0.55-1.02); EST CRCL DRUG DOSING (CG) 28.96 mL/min; POTASSIUM,K 3.8 mmol/L (3.5-5.1)
[2023-06-24] MEDS: Sodium Chloride 0.9% 1,000 ML IV SCH ×2 (08:33→21:27)
[2023-06-24] MEDS: Bumetanide 1 MG Tab PO SCH (08:44)
[2023-06-24] MEDS: Acetaminophen/HYDROcodone 325-5 MG Tab PO PRN ×2 (08:44→20:05)
[2023-06-24] MEDS: Metoprolol Succinate 50 MG Tab.ER PO SCH (08:45)
[2023-06-24] MEDS: Oxybutynin 5 MG Tab.ER PO SCH (08:45)
[2023-06-24] MEDS: Sertraline 50 MG Tab PO SCH (08:46)
[2023-06-24] MEDS: Aspirin 81 MG Tab.EC PO SCH (08:46)
[2023-06-24] MEDS: amLODIPine 5 MG Tab PO SCH (08:47)
[2023-06-24] MEDS: Apixaban 5 MG Tab PO SCH ×2 (08:47→20:04)
[2023-06-24] MEDS: Clopidogrel 75 MG Tab PO SCH (08:47)
[2023-06-24] MEDS: Gabapentin 300 MG Cap PO SCH (20:04)
[2023-06-24] MEDS: atorvaSTATin 10 MG Tab PO SCH (20:04)
[2023-06-24] MEDS: Latanoprost 0.005% Ophth Soln 2.5 ML Bottle EYEBOTH SCH (20:04)
[2023-06-24] MEDS: Pramipexole 0.5 MG Tab PO SCH (20:04)
[2023-06-24] MEDS: Calcium Carbonate 500 MG Tab.Chew PO PRN (20:16)
[2023-06-25] MEDS: Pantoprazole 40 MG Tab.CR PO SCH ×2 (05:06→17:09)
[2023-06-25 06:36] LABS: ANION GAP 9.7 mEq/L (7-13); CALCIUM 8.4 mg/dL (8.5-10.1); CREATININE 1.06 mg/dL (0.55-1.02); EST CRCL DRUG DOSING (CG) 27.87 mL/min; POTASSIUM,K 3.7 mmol/L (3.5-5.1)
[2023-06-25] MEDS: Bumetanide 1 MG Tab PO SCH (09:20)
[2023-06-25] MEDS: Oxybutynin 5 MG Tab.ER PO SCH (09:20)
[2023-06-25] MEDS: Aspirin 81 MG Tab.EC PO SCH (09:20)
[2023-06-25] MEDS: Apixaban 5 MG Tab PO SCH ×2 (09:20→21:55)
[2023-06-25] MEDS: Sertraline 50 MG Tab PO SCH (09:21)
[2023-06-25] MEDS: amLODIPine 5 MG Tab PO SCH (09:21)
[2023-06-25] MEDS: Clopidogrel 75 MG Tab PO SCH (09:21)
[2023-06-25] MEDS: Metoprolol Succinate 50 MG Tab.ER PO SCH (09:24)
[2023-06-25] MEDS: Sodium Chloride 0.9% 1,000 ML IV SCH (11:09)
[2023-06-25] MEDS: Calcium Carbonate 500 MG Tab.Chew PO PRN (12:48)
[2023-06-25] MEDS: atorvaSTATin 10 MG Tab PO SCH (21:54)
[2023-06-25] MEDS: Pramipexole 0.5 MG Tab PO SCH (21:55)
[2023-06-25] MEDS: Sennosides/Docusate Sodium 50-8.6 MG Tab PO PRN (21:55)
[2023-06-25] MEDS: Gabapentin 300 MG Cap PO SCH (21:56)
[2023-06-25] MEDS: Latanoprost 0.005% Ophth Soln 2.5 ML Bottle EYEBOTH SCH (21:56)
[2023-06-26] MEDS: Sodium Chloride 0.9% 1,000 ML IV SCH (00:12)
[2023-06-26] MEDS: Pantoprazole 40 MG Tab.CR PO SCH ×2 (06:30→17:18)
[2023-06-26] MEDS: Metoprolol Succinate 50 MG Tab.ER PO SCH (09:53)
[2023-06-26] MEDS: Bumetanide 1 MG Tab PO SCH (09:54)
[2023-06-26] MEDS: Sertraline 50 MG Tab PO SCH (09:54)
[2023-06-26] MEDS: amLODIPine 5 MG Tab PO SCH (09:54)
[2023-06-26] MEDS: Oxybutynin 5 MG Tab.ER PO SCH (09:54)
[2023-06-26] MEDS: Apixaban 5 MG Tab PO SCH ×2 (09:54→21:12)
[2023-06-26] MEDS: Aspirin 81 MG Tab.EC PO SCH (09:54)
[2023-06-26] MEDS: Clopidogrel 75 MG Tab PO SCH (09:54)
[2023-06-26] MEDS: Pramipexole 0.5 MG Tab PO SCH (21:12)
[2023-06-26] MEDS: atorvaSTATin 10 MG Tab PO SCH (21:12)
[2023-06-26] MEDS: Gabapentin 300 MG Cap PO SCH (21:12)
[2023-06-26] MEDS: Latanoprost 0.005% Ophth Soln 2.5 ML Bottle EYEBOTH SCH (21:13)
[2023-06-27] MEDS: Pantoprazole 40 MG Tab.CR PO SCH (05:10)
[2023-06-27] MEDS: Acetaminophen/HYDROcodone 325-5 MG Tab PO PRN (05:15)
[2023-06-27] MEDS: Metoprolol Succinate 50 MG Tab.ER PO SCH (08:19)
[2023-06-27] MEDS: amLODIPine 5 MG Tab PO SCH (08:24)
[2023-06-27] MEDS: Oxybutynin 5 MG Tab.ER PO SCH (08:24)
[2023-06-27] MEDS: Bumetanide 1 MG Tab PO SCH (08:24)
[2023-06-27] MEDS: Sertraline 50 MG Tab PO SCH (08:24)
[2023-06-27] MEDS: Apixaban 5 MG Tab PO SCH (08:24)
[2023-06-27] MEDS: Clopidogrel 75 MG Tab PO SCH (08:24)
[2023-06-27] MEDS: Aspirin 81 MG Tab.EC PO SCH (08:25)
[2023-06-27] MEDS: Sennosides/Docusate Sodium 50-8.6 MG Tab PO PRN (08:25)
[2023-06-27 10:06] VITALS: BP 106/53; PULSE 70
== END 2023-06-27 10:30 | DRG 65 ==
LOC: DL.ED 16:23 → UNDOADMOB 19:06 → DL.MS 19:06 → OBSVTOIN 06-19 13:35 → DL.MS 06-19 13:35
PROVIDERS: ADMIT Internal Medicine; ATTEND Internal Medicine
DX: I63.9 Cerebral infarction, unspecified (principal); G81.91 Hemiplegia, unspecified affecting right dominant side; I48.20 Chronic atrial fibrillation, unspecified; I50.22 Chronic systolic (congestive) heart failure; I13.0 Hypertensive heart and chronic kidney disease with heart failure and stage 1 through stage 4 chronic kidney disease, or unspecified chronic kidney disease; I48.92 Unspecified atrial flutter; R47.01 Aphasia; E78.5 Hyperlipidemia, unspecified; I25.10 Atherosclerotic heart disease of native coronary artery without angina pectoris; H40.9 Unspecified glaucoma; N18.30 Chronic kidney disease, stage 3 unspecified; G25.81 Restless legs syndrome; M10.9 Gout, unspecified; E66.9 Obesity, unspecified; E78.00 Pure hypercholesterolemia, unspecified; Z66 Do not resuscitate; I73.9 Peripheral vascular disease, unspecified; F41.9 Anxiety disorder, unspecified; M19.90 Unspecified osteoarthritis, unspecified site; R29.702 NIHSS score 2; K21.9 Gastro-esophageal reflux disease without esophagitis; M81.0 Age-related osteoporosis without current pathological fracture; Z11.52 Encounter for screening for COVID-19; Z96.649 Presence of unspecified artificial hip joint; Z96.659 Presence of unspecified artificial knee joint; R47.1 Dysarthria and anarthria; R29.810 Facial weakness; Z98.49 Cataract extraction status, unspecified eye; Z79.01 Long term (current) use of anticoagulants; Z95.0 Presence of cardiac pacemaker; Z98.890 Other specified postprocedural states; Z86.718 Personal history of other venous thrombosis and embolism; Z86.711 Personal history of pulmonary embolism; Z79.899 Other long term (current) drug therapy; Z86.16 Personal history of COVID-19; Z79.82 Long term (current) use of aspirin; Z87.11 Personal history of peptic ulcer disease; Z90.710 Acquired absence of both cervix and uterus
CPT/HCPCS: 36415; 70450; 70496; 70498; 80048; 80053; 80061; 81001; 82947; 83036; 83735; 83880; 84439; 84443; 84484; 85025; 85610; 85730; 87086; 92610-GN; 93005; 93010; 96360; 96361; 96365; 96366; 96375; 96376; 97110-GP; 97112-GO; 97140-GO; 97161-GP; 97165-GO; 97530-GO; 97530-GP; 99285; 99285-25; A9270-GY; G0378; J0282; J0360; J1170; J2060; J3490; J7030; J7040; Q9967; U0002

== ENCOUNTER 2023-09-20 21:33 | Emergency (ER) | payer MEDICARE, OTHER ==
[2023-09-20 22:09] VITALS: BP 128/70; PULSE 89
[2023-09-20] MEDS ORDERED: Sodium Chloride 0.9% 10 ML Syringe FLUSH PRN (22:11)
[2023-09-20] MEDS ORDERED: Ketamine 500 mg/10 ML MDV IV ONE (22:17)
== END 2023-09-21 00:25 ==
LOC: DL.ED 21:33
DX: S43.014A Anterior dislocation of right humerus, initial encounter (principal); I13.0 Hypertensive heart and chronic kidney disease with heart failure and stage 1 through stage 4 chronic kidney disease, or unspecified chronic kidney disease; I50.22 Chronic systolic (congestive) heart failure; N18.30 Chronic kidney disease, stage 3 unspecified; I48.91 Unspecified atrial fibrillation; E78.00 Pure hypercholesterolemia, unspecified; E66.9 Obesity, unspecified; Z86.16 Personal history of COVID-19; Z79.82 Long term (current) use of aspirin; Z79.01 Long term (current) use of anticoagulants; Z79.899 Other long term (current) drug therapy; Z79.02 Long term (current) use of antithrombotics/antiplatelets; Z95.0 Presence of cardiac pacemaker; Z90.710 Acquired absence of both cervix and uterus; W06.XXXA Fall from bed, initial encounter; Y92.122 Bedroom in nursing home as the place of occurrence of the external cause; Z86.73 Personal history of transient ischemic attack (TIA), and cerebral infarction without residual deficits
CPT/HCPCS: 23650; 73020; 73030; 99285; J3490

== ENCOUNTER 2024-06-06 16:21 | Emergency (ER) | payer MEDICARE, OTHER ==
[2024-06-06] MEDS ORDERED: Sodium Chloride 0.9% 10 ML Syringe FLUSH PRN (16:33)
[2024-06-06 16:57] LABS: BASOPHILS PERCENT AUTO 0.2 % (0.0-1.0); EOSINOPHILS PERCENT AUTO 5.6 % (1.0-3.0); HEMOGLOBIN 12.8 g/dL (12.0-16.0); LYMPHOCYTES PERCENT AUTO 26.2 % (20.5-50.1); MEAN CORPUSCULAR HEMOGLOBIN 31.9 pg (27.0-34.0); MEAN CORPUSCULAR VOLUME 99.8 fL (80-100); PLATELET COUNT,PLT 269 10^3/uL (150-450); RED BLOOD CELL COUNT 4.01 10^6/uL (4.2-5.4); WHITE BLOOD CELL COUNT,WBC 11.2 10^3/uL (5.0-10.0)
[2024-06-06 17:13] LABS: APPEARANCE,URINE CLOUDY (CLEAR); BILIRUBIN,URINE NEGATIVE (NEGATIVE); COLOR,URINE YELLOW (YELLOW); GLUCOSE,URINE NEGATIVE (NEGATIVE); KETONES,URINE NEGATIVE (NEGATIVE); LEUKOCYTE ESTERASE,URINE LARGE (NEGATIVE); NITRITE,URINE NEGATIVE (NEGATIVE); OCCULT BLOOD,URINE LARGE (NEGATIVE); PH,URINE 5.5 (5.0-9.0); PROTEIN,URINE 30 (NEGATIVE); UROBILINOGEN,URINE 0.2 mg/dL (0.2-1.0)
[2024-06-06 17:14] LABS: AMPHETAMINES,URINE NEGATIVE (NEGATIVE); BARBITURATES,URINE NEGATIVE (NEGATIVE); BENZODIAZEPINE,URINE NEGATIVE (NEGATIVE); MDMA (ECSTASY), URINE NEGATIVE (NEGATIVE); METHADONE,URINE NEGATIVE (NEGATIVE); METHAMPHETAMINES,URINE NEGATIVE (NEGATIVE); OPIATES,URINE NEGATIVE (NEGATIVE); OXYCODONE,URINE NEGATIVE (NEGATIVE); PHENCYCLIDINE,URINE NEGATIVE (NEGATIVE); TCA,URINE NEGATIVE (NEGATIVE)
[2024-06-06 17:14] LABS: INR 1.1 (0.9-1.2); PROTHROMBIN TIME 11.6 SEC (9.0-12.0); PTT,PARTIAL THROMBOPLSTIN TIME 28.7 SEC (22.0-34.0)
[2024-06-06 17:17] LABS: ALANINE AMINOTRANSFERASE,ALT 13 U/L (14-59); ALKALINE PHOSPHATASE 156 U/L (46-116); ANION GAP 10.5 mEq/L (7-13); ASPARTATE AMNIOTRANSFERASE,AST 23 U/L (15-37); BILIRUBIN TOTAL 0.5 mg/dL (0.2-1.0); BLOOD UREA NITROGEN,BUN 24 mg/dL (7-18); BUN/CREATININE RATIO 18.2 (No establ ref range); C-REACTIVE PROTEIN 1.39 ng/dL (<=0.50); CALCIUM 9.2 mg/dL (8.5-10.1); CARBON DIOXIDE,CO2 32 mmol/L (21-32); CHLORIDE,CL 101 mmol/L (98-107); CREATININE 1.32 mg/dL (0.55-1.02); GLUCOSE RANDOM 101 mg/dL (70-99); LACTIC ACID 1.6 mmol/L (0.4-2.0); MAGNESIUM 1.8 mg/dL (1.8-2.4); POTASSIUM,K 3.5 mmol/L (3.5-5.1); PROTEIN TOTAL,TP 7.4 g/dL (6.4-8.2); SODIUM,NA 140 mmol/L (136-145)
[2024-06-06 17:18] LABS: A/G RATIO 0.68; ESTIMATED GFR 39 mL/min (>=60)
[2024-06-06 17:22] LABS: BACTERIA,URINE MODERATE /HPF (0-FEW/HPF); EPITHELIAL CELLS,URINE FEW /HPF (NOT SEEN); WBC,URINE PACKED /HPF (0-5/HPF)
[2024-06-06] MEDS: cefTRIAXone 1 GM Vial IVPUSH ONE (17:51)
[2024-06-06] MEDS: Take Home: Cephalexin 500 MG Cap, 6 Cap Pack PO ONE (18:27)
== END 2024-06-06 19:26 | disposition home or self-care (01) ==
LOC: DL.ED 16:21
DX: N39.0 Urinary tract infection, site not specified (principal); I48.91 Unspecified atrial fibrillation; I12.9 Hypertensive chronic kidney disease with stage 1 through stage 4 chronic kidney disease, or unspecified chronic kidney disease; N18.9 Chronic kidney disease, unspecified; E66.9 Obesity, unspecified; Z86.16 Personal history of COVID-19; Z90.710 Acquired absence of both cervix and uterus; Z79.82 Long term (current) use of aspirin; Z79.899 Other long term (current) drug therapy; Z79.01 Long term (current) use of anticoagulants; W18.30XA Fall on same level, unspecified, initial encounter
CPT/HCPCS: 36415; 70450; 71045; 72125; 80053; 80305; 81001; 83605; 83735; 84484; 85025; 85610; 85730; 86140; 87086; 87088; 87186; 93010; 96374; 99284; A9270; J0696

== ENCOUNTER 2024-10-07 07:22 | Emergency (ER) | payer MEDICARE, OTHER ==
[2024-10-07] MEDS ORDERED: Sodium Chloride 0.9% 10 ML Syringe FLUSH PRN (07:23)
[2024-10-07] MEDS: fentaNYL 100 MCG/2 ML SDV IVPUSH ONE ×2 (07:58→09:15)
[2024-10-07 08:17] LABS: BASOPHILS PERCENT AUTO 0.2 % (0.0-1.0); EOSINOPHILS PERCENT AUTO 5.5 % (1.0-3.0); HEMATOCRIT 43.1 % (37.0-47.0); HEMOGLOBIN 13.8 g/dL (12.0-16.0); LYMPHOCYTES PERCENT AUTO 27.1 % (20.5-50.1); MEAN CORPUSCULAR HEMOGLOBIN 30.7 pg (27.0-34.0); MONOCYTES PERCENT AUTO 10.8 % (2-8); NEUTROPHILS PERCENT AUTO 56.4 % (42.2-75.2); PLATELET COUNT,PLT 294 10^3/uL (150-450); RED BLOOD CELL COUNT 4.49 10^6/uL (4.2-5.4); WHITE BLOOD CELL COUNT,WBC 9.6 10^3/uL (5.0-10.0)
[2024-10-07 08:34] LABS: INR 1.1 (0.9-1.2)
[2024-10-07 08:40] LABS: ALANINE AMINOTRANSFERASE,ALT 14 U/L (14-59); ALBUMIN 3.3 g/dL (3.4-5.0); ALKALINE PHOSPHATASE 156 U/L (46-116); ANION GAP 9.9 mEq/L (7-13); ASPARTATE AMNIOTRANSFERASE,AST 14 U/L (15-37); BILIRUBIN TOTAL 0.6 mg/dL (0.2-1.0); BLOOD UREA NITROGEN,BUN 19 mg/dL (7-18); BUN/CREATININE RATIO 20.4 (No establ ref range); CALCIUM 9.8 mg/dL (8.5-10.1); CARBON DIOXIDE,CO2 33 mmol/L (21-32); CHLORIDE,CL 100 mmol/L (98-107); CREATININE 0.93 mg/dL (0.55-1.02); GLUCOSE RANDOM 104 mg/dL (70-99); POTASSIUM,K 3.9 mmol/L (3.5-5.1); PROTEIN TOTAL,TP 7.6 g/dL (6.4-8.2); SODIUM,NA 139 mmol/L (136-145)
[2024-10-07 08:41] LABS: A/G RATIO 0.77; ESTIMATED GFR 59 mL/min (>=60)
[2024-10-07] MEDS ORDERED: Lidocaine 1% with EPINEPHrine 1:100,000 20 ML MDV INJECT ONE (09:17)
[2024-10-07 09:45] VITALS: BP 142/72; PULSE 70
[2024-10-07] MEDS: Lidocaine 1% with EPINEPHrine 1:100,000 20 ML MDV INJECT ONE (09:46)
[2024-10-07 11:08] LABS: APPEARANCE,URINE SLIGHTLY CLOUDY (CLEAR); BILIRUBIN,URINE NEGATIVE (NEGATIVE); COLOR,URINE YELLOW (YELLOW); GLUCOSE,URINE NEGATIVE (NEGATIVE); KETONES,URINE NEGATIVE (NEGATIVE); LEUKOCYTE ESTERASE,URINE LARGE (NEGATIVE); NITRITE,URINE POSITIVE (NEGATIVE); OCCULT BLOOD,URINE MODERATE (NEGATIVE); PROTEIN,URINE 100 (NEGATIVE)
[2024-10-07 11:18] LABS: BACTERIA,URINE MANY /HPF (0-FEW/HPF); EPITHELIAL CELLS,URINE FEW /HPF (NOT SEEN); WBC,URINE >100 /HPF (0-5/HPF)
[2024-10-07] MEDS: Nitrofurantoin Monohydrate/Macrocrystalline 100 MG Cap PO ONE (11:26)
== END 2024-10-07 12:30 ==
LOC: DL.ED 07:22
DX: S41.111A Laceration without foreign body of right upper arm, initial encounter (principal); S00.03XA Contusion of scalp, initial encounter; I48.91 Unspecified atrial fibrillation; E78.00 Pure hypercholesterolemia, unspecified; I12.9 Hypertensive chronic kidney disease with stage 1 through stage 4 chronic kidney disease, or unspecified chronic kidney disease; N18.9 Chronic kidney disease, unspecified; K21.9 Gastro-esophageal reflux disease without esophagitis; Z86.16 Personal history of COVID-19; Z79.82 Long term (current) use of aspirin; Z79.01 Long term (current) use of anticoagulants; Z79.899 Other long term (current) drug therapy; N39.0 Urinary tract infection, site not specified; W18.39XA Other fall on same level, initial encounter; Y92.129 Unspecified place in nursing home as the place of occurrence of the external cause; Y93.89 Activity, other specified
CPT/HCPCS: 12004; 36415; 70450; 70486; 71045; 72125; 72170; 73060; 73090; 80053; 81001; 83735; 84484; 85025; 85610; 87086; 87088; 87186; 93005; 96374; 96376; 99285; A9270; C1758; J2004; J3010